=== PATIENT | female | born 1955 | race Caucasian/White ===

== ENCOUNTER 2019-12-31 22:06 | Observation (INO) | payer OTHER ==
--- OUTSIDE RECORDS SUMMARY | 2019-12-31 22:09 | XMS REPORT | Clinical Summary ---
:1955 Author Organization [facility] Address [address] [place] [address] Care Team Providers Name Role Phone Jayro Vale MD Primary Care Provider Allergies No Known Allergies Medications Medication Sig Dispensed Refills Start Date End Date Status ALPRAZolam (XANAX) 0.25 Take 0.25 mg by 2 02/08/2019 Active MG tablet mouth 3 (three) times a day. bisoprolol (ZEBETA) 10 Take 10 mg by 02/11/2019 Active MG tablet mouth daily. buPROPion XL Take 300 mg by 0 12/22/2018 A ctive (WELLBUTRIN XL) 300 MG mouth daily. 24 hr tablet cholecalciferol, TAKE ONE CAPSULE 1 02/09/2019 Active vitamin D3, 50,000 unit ONCE A WEEK FOR A capsule MONTH AND THEN ONCE A MONTH desvenlafaxine Take 100 mg by 0 12/23/2018 Active (PRISTIQ) 100 MG 24 hr mouth daily. tablet levothyroxine TAKE 1 TABLET BY 0 02/09/2019 Active (SYNTHROID, LEVOXYL) 50 MOUTH ONCE EVERY mcg tablet MORNING ON AN EMPTY STOMACH spironolactone Take 50 mg by 1 02/09/2019 Active (ALDACTONE) 50 MG mouth daily. tablet traMADol (ULTRAM) 50 mg TAKE 1 TABLET BY 2 9 Active tablet MOUTH EVERY DAY NEEDED FOR JOINT PAIN zolpidem (AMBIEN) 10 mg TAKE 1 TABLET BY 0 9 Active tablet MOUTH EVERYDAY AT BEDTIME Active Problems Problem Noted Date Varicose veins of leg with edema, bilateral 03/30/2019 Resolved Problems Problem Noted Date Resolved Date Varicose veins of bilateral lower extremities with pain 03/0505/06/2019 Encounters Date Type Specialty Care Team Description 05/05/2019 Office Visit Cardiovascular Kenneth Sawant, Varicose veins of leg MD with edema, aubree ateral (Primary Dx) 04/07/2019 Office Visit Cardiovascular Kenneth Sawant, Varicose veins of bilateral lower extremities with pain (Primary Dx); Varicose veins of leg with edema, bilateral 03/31/2019 Procedure visit Cardiovascular Kenneth Sawant, Varic ose veins of leg with edema, bilateral (Primary Dx); Varicose veins of bilateral lower extremities with pain 03/30/2019 Procedure visit Cardiovascular Kenneth Sawant, Varic ose veins of bilateral lower extremities with pain (Primary Dx); Varicose veins of leg with edema, bilateral 03/30/2019 Refill Cardiovascular Belinda Mcgowan, BIT SANDER 03/30/2019 Refill Cardiovascular Belinda Mcgowan, BIT SANDER 03/10/2019 Office Visit Cardiovascular Kenneth Sawant, Varicose veins of both legs with edema (Primary Dx); Varicose veins of bilateral lower extremities with pain; Varicose veins of leg with edema, bilateral after 12/30/2018 Family History Medical History Relation Name Comments Hypertension Father Dementia Mother Hypertension Mother Varicose Veins Paternal Grandmother Relation Name Status Comments Father Mother Paternal Grandmother Social History Tobacco Use Types Packs/Day Years Used Date Never Smoker Smokeless Tobacco: Never Used Alcohol Use Drinks/Week oz/Week Comments Never Alcohol Habits Answer Date Recorded How often do you have a drink containing alcohol? Never 03/10/2019 How many drinks containing alcohol do you have on a typical Not asked day when you are drinking? How often do you have six or more drinks on one occasion? No t asked Sex Assigned at Date Recorded Not on file Job Start Date Occupation Industry Not on file Not on file Not on file Travel History Travel Start Travel End No recent travel history available. Last Filed Vital Signs Vital Sign Reading Time Taken Comments Blood Pressure 143/82 05/05/2019 1:29 PM CDT Pulse 57 05/05/2019 1:29 PM CDT Temperature - - Respiratory Rate 14 03/31/2019 1:45 PM CDT Oxygen Saturation 100% 05/05/2019 1:29 PM CDT Inhaled Oxygen Concentration - - Weight 116 kg (256 lb) 03/31/2019 1:45 PM CDT Height 170.2 cm (5' 7") 03/31/2019 1:45 PM CDT Body Mass Index 40.1 03/31/2019 1:45 PM CDT Plan of Treatment Date Type Specialty Care Team Description 01/04/2020 [place] [address] [facility] [address] [place], [place] [address] [phone] Health Maintenance Due Date Last Done Comments CERVICAL CANCER SCREENING 1977 BREAST CANCER SCREENING 2006 COLONOSCOPY SCREENING 2006 SHINGLES VACCINES (#1) 2006 INFLUENZA VACCINE 03/04/2020 Procedures Procedure Name Priority Date/Time Associated Diagnosis Comme nts FL ENDOVENOUS LASER, Routine 03/31/2019 1:30 Varicose veins o f Results for this 1ST VEIN PM CDT leg with edema, procedure ar e in bilateral the results Varicose veins of section. bilateral lower extremities with pain FL ENDOVENOUS LASER, Routine 03/30/2019 1:30 Varicose veins o f Results for this 1ST VEIN PM CDT bilateral lower procedure ar e in extremities with the results pain section. Varicose veins of leg with edema, bilateral after 12/30/2018 Results Venous Treatments (03/31/2019 1:30 PM CDT) Narrative Performed At Kenneth Sawant MD 03/31/2019 2 :53 PM Venous Treatments Date/Time: 03/31/2019 2:51 PM Performed by: Kenneth Sawant MD Authorized by: Kenneth Sawant MD Procedure Comments: Surgeon: Kenneth Sawant M.D. 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 with jen icose veins and edema Postoperative Diagnosis: Same as Preoper ative Diagnosis Procedure: EndovenousLaser Treatment (EVLT) CPT 31747, 98318 of the right proximal greater saphenous vein Equipment: VenaCure 1470 diode laser Specifications: Length of the vein 30 cm , 307 seconds, 1840 Joules Anesthesia: Local Tumescent (400 cc of R jessica s Lactate, 1% Lidocaine with epinephrine 50 ml, Solumedrol 40 mg) Total amount used of the mixture: 150 ml Blood Loss: Less than 5 cc Specimens: None Complications: None Procedure in Detail: A thorough and appropriate discussion re garding the indications, risks, and benefits of this procedure was done with the patie nt. They were given ample opportunity to ask any questions w lowellh were answered to their satisfaction. After informed consent w as obtained, the following procedure was performed in our clinic. The patient was placed in a supine position in the pro cedure room. The The right proximal grater saphenous was mapped using t he Duplex ultrasound and marked the site of entrance on the p atient s leg. The leg was then prepped and draped in a sterile fashion. 1% plain li docaine was used to infiltrate the skin and under ultrasound guidance the right mid-distal grater saphenous vein was accessed percutaneously wi th a one step 4 Fr sheath. A wire was placed into the she ath and followed to the saphenofemoral junction (SFJ) with ultrasound assistan ce. The dilator and wire were removed and 600 m laser fiber was introduc ed in to the catheter and then withdrawn 2.5 cm from the Junct ion. Then, tumescent anesthetic was injected around the saphenous vein u nder ultrasound guidance. The laser was fired up and withdrawn slowly delivering hiral roximately 60 Joules per cm from its location and throughout the treated segment. The treated length was 30cm. Once the procedure wa s completed, the hardware was removed and a repeat Duplex scan was performed to as certain closure of the vein and no injury the common femora l vein was done. Then steri strips were applied and the leg was then wrapped with ABD pads along the saphenous vein, and thigh-high compressi on stocking was applied. The patient tolerated the procedure well and remained in the procedure room for 15-20 minutes. After that the p ostoperative instructions were given verbally and in writing as well. Sherif arrieta advised over the counter Ibuprofen 400 mg PO every 4-6 hrs for pa in control. The patient was discharged home. The patient understood and agreed. Consent: Consent obtained: Verbal and writte n Consent given by: Patient Risks discussed: Bleeding, incomplete drainage, i nfection, pain, nerve damage, poor cosmetic result and deep ve nous thrombosis formation Alternatives discussed: No treatment, delayed shara atment, alternative treatment, observation and referral [place] protocol: Procedure explained and questions ans wered to patient or proxy's satisfaction: yes Site/side marked: yes Immediately prior to procedure a time out was called: yes Patient identity confirmed: Verball y with patient Post-procedure details: Patient tolerance of procedure: Court erated well, no immediate complications Venous Treatments (03/30/2019 1:30 PM CDT) Narrative Performed At Kenneth Sawant MD 03/30/2019 3 :17 PM Venous Treatments Date/Time: 03/30/2019 3:15 PM Performed by: Kenneth Sawant MD Authorized by: Kenneth Sawant MD Procedure Comments: Surgeon: Kenneth Sawant M.D. As sistants: SAVANNAH Sanders MA Amanda Mercado Preoperative Diagnosis: Symptomatic veno us insufficiency of the left proximal greater saphenous vein with jen icose veins and edema Postoperative Diagnosis: Same as Preoper ative Diagnosis Procedure: EndovenousLaser Treatment (EV LT) CPT 77029,74312 of the left proximal greater saphenous vein Equipment: VenaCure 1470 diode laser Specifications: Length of the vein 40 cm , 388 seconds, 2329 Joules Anesthesia: Local Tumescent (400 cc of R jessica s Lactate, 1% Lidocaine with epinephrine 50 ml, Solumedrol 40 mg) Total amount used of the mixture: 150 ml Blood Loss: Less than 5 cc Specimens: None Complications: None Procedure in Detail: A thorough and appropriate discussion re garding the indications, risks, and benefits of this procedure was done with the patie nt. They were given ample opportunity to ask any questions w hich were answered to their satisfaction. After informed consent w as obtained, the following procedure was performed in our clinic. The patient was placed in a supine position in the pro cedure room. The The left proximal grater saphenous was mapped using th e Duplex ultrasound and marked the site of entrance on the p atient s leg. The leg was then prepped and draped in a sterile fashion. 1% plain li docaine was used to infiltrate the skin and under ultrasound guidance the left mid-distal grater saphenous vein was accessed percutaneously wi th a one step 4 Fr sheath. A wire was placed into the she ath and followed to the saphenofemoral junction (SFJ) with ultrasound assistan ce. The dilator and wire were removed and 600 m laser fiber was introduc ed in to the catheter and then withdrawn 2.5 cm from the Junct ion. Then, tumescent anesthetic was injected around the saphenous vein u nder ultrasound guidance. The laser was fired up and withdrawn slowly delivering hiral roximately 60 Joules per cm from its location and throughout the treated segment. The treated length was 40 cm. Once the procedure w as completed, the hardware was removed and a repeat Duplex scan was performed to as certain closure of the vein and no injury the common femora l vein was done. The puncture sites were covered with steri-strips. The leg was th en wrapped with ABD pads along the saphenous vein, and thigh -high compression stocking was applied. The patient tolerated the procedure well and remained in the procedure room for 15-20 minutes. After that the p ostoperative instructions were given verbally and in writing as well. W berny advised over the counter Ibuprofen 400 mg PO every 4-6 hrs for pa in control. The patient was discharged home. The patient understood and agreed. Consent: Consent obtained: Verbal and writte n Consent given by: Patient Risks discussed: Bleeding, incomplete drainage, i nfection, pain, nerve damage, poor cosmetic result and deep ve nous thrombosis formation Alternatives discussed: No treatment, delayed shara atment, alternative treatment, observation and referral [place] protocol: Procedure explained and questions ans wered to patient or proxy's satisfaction: yes Site/side marked: yes Immediately prior to procedure a time out was called: yes Patient identity confirmed: Verball y with patient Post-procedure details: Patient tolerance of procedure: Court erated well, no immediate complications after 12/30/2018 Advance Directives For more information, please contact: [phone] Type Date Recorded Patient Law Researcher Explanati on Advance Directives, Living Will and Medical Power of Drug Coordinator
[2019-12-31 22:41] LABS: Basophils % 0.9 % (0-1.3); Hematocrit 25.2 % (36.0-45.0); Lymphocytes % 27.1 % (15.3-44.8); MPV 8.1 fL (7.6-11.3); RBC Red Blood Cell Count 3.08 M/uL (3.86-4.86)
[2019-12-31 22:45] LABS: Protime INR 1.2
[2019-12-31 23:06] LABS: ALT/SGPT 17 U/L (12-78); AST/SGOT 29 U/L (15-37); Albumin 2.6 g/dL (3.4-5.0); Alkaline Phosphatase 92 U/L (45-117); BUN Blood Urea Nitrogen 33 mg/dL (7-18); Bicarbonate 25 mmol/L (21-32); Bilirubin Direct 0.2 mg/dL (0-0.2); Bilirubin Total 0.9 mg/dL (0.2-1.0); CKMB Creatine Kinase MB 2.8 ng/mL (0.3-3.6); Creatine Phosphokinase 203 U/L (26-192); Glucose Level 112 mg/dL (74-106); Lipase 63 U/L (73-393); Magnesium 1.8 mg/dL (1.8-2.4); Potassium 4.3 mmol/L (3.5-5.1); Sodium Level 140 mmol/L (136-145); Troponin (Emerg Dept Use Only) < 0.02 ng/mL (0.0-0.045)
[2019-12-31] MEDS ORDERED: NA CHLORIDE 0.9% 1,000 ML ONE (23:23)
[2020-01-01] MEDS ORDERED: ACETAMINOPHEN 500 MG TAB PO PRN (00:34)
[2020-01-01 00:42] LABS: Urine Blood NEGATIVE (NEG); Urine Glucose NEGATIVE (NEG); Urine Protein NEGATIVE (NEG); Urine pH 7.5 (5.0-7.0)
[2020-01-01 00:56] LABS: Barbiturates NEGATIVE (NEGATIVE); Benzodiazepines NEGATIVE (NEGATIVE); Cocaine NEGATIVE (NEGATIVE); METHAMPHETAM NEGATIVE (NEGATIVE); Methadone NEGATIVE (NEGATIVE); Opiates NEGATIVE (NEGATIVE); Phencyclidine NEGATIVE (NEGATIVE); THC Cannibis NEGATIVE (NEGATIVE)
[2020-01-01] MEDS ORDERED: ONDANSETRON 4 MG/2 ML VIAL ONE (01:25)
[2020-01-01 02:54] VITALS: BMI 38.2
[2020-01-01] MEDS: PANTOPRAZOLE INJ 80 MG in NA CHLORIDE 0.9% 250 ML IV SCH ×2 (05:56→15:47)
[2020-01-01] MEDS ORDERED: PANTOPRAZOLE 40 MG INJ ONE (05:57)
[2020-01-01] MEDS ORDERED: NA CHLORIDE 0.9% 250 ML ONE ×3 (05:57→10:46)
[2020-01-01 06:09] LABS: Absolute Lymphocytes (CBC) 1.1 K/uL (0.7-4.9); Basophils % 0.6 % (0-1.3); Lymphocytes % 19.6 % (15.3-44.8); MPV 8.1 fL (7.6-11.3); RBC Red Blood Cell Count 2.56 M/uL (3.86-4.86)
[2020-01-01] MEDS ORDERED: ALPRAZOLAM 0.25 MG TABLET PO SCH (09:00)
[2020-01-01] MEDS ORDERED: BUPROPION HCL XL 150 MG TAB PO SCH (09:00)
[2020-01-01] MEDS ORDERED: BISOPROLOL 5 MG TABLET PO SCH (09:00)
[2020-01-01] MEDS ORDERED: LEVOTHYROXINE SOD 0.05 MG TABLET PO SCH (09:00)
[2020-01-01] MEDS ORDERED: DESVENLAFAXINE SUCCINATE 100 MG PO SCH (09:00)
--- NOTE | 2020-01-01 11:22 | P.SSS ---
Patient History Date of Service: 01/01/20 Reason for admission: WEAK, PASSED OUT. History of Present Illness: MS. KUMAR IS A PATIENT WITH CHRONIC DEPRESSION WHO GOES TO A PSYCHIATRIST. SHE DOES NOT COME TO MY OFFICE MUCH. SHE DID SOME YARD WORK AND HAS HAD SHOULDER PAIN. SHE HAS BEEN TAKING ADVIL DAILY FOR IT. SHE COMES IN WITH WEAKNESS AND MELENA. HER HG WAS 8 GM AND DROPPED TO 6.8 IN A FEW HOURS. NURSED CALLED ME A FEW TIMES AT NIGHT TO TAKE CARE OF THIS. I ORDERED TWO UNITS OF PACKED RBCS. HER BP IS ABOUT 95 SYSTOLIC. WE DON'T HAVE A GI DOCTOR [facility]. I HAVE CALLED A FEW GI DOCTORS TO SEE IF ANYONE WANTS TO TRANSFER HER TO [facility] OR [place]. MEANWHILE I WILL CONTINUE SUPPORTIVE CARE. Allergies codeine [Codeine] Adverse Reaction (Intermediate, Verified 06/23/12 04:22) Nausea/Vomiting Home Medications: ALPRAZolam [Xanax*] 0.25 mg PO QID PRN 01/01/20 Bupropion *Xl* [Wellbutrin XL*] 300 mg PO DAILY 01/01/20 Desvenlafaxine Succinate [Desvenlafaxine Succinate ER] 100 mg PO DAILY 01/01/20 Levothyroxine [Synthroid*] 50 mcg PO DAILY 01/01/20 Zolpidem Tartrate [Ambien*] 10 mg PO BEDTIME 01/01/20 bisoproloL fumarate [Zebeta*] 10 mg PO DAILY 01/01/20 - Past Medical/Surgical History Has patient received pneumonia vaccine in the past: No Diabetic: No -: HTN -: hypothyroidism -: anxiety -: depression -: DVT bilateral legs -: stomach stapling -: hysterectomy -: veins in legs repaired -: polyps removed from colon -: Bilateral feet surgery - Family History Father -: Hypertension, Lung disease Mother -: Heart disease, Hypertension, Stroke, Seizures - Social History Smoking Status: Former smoker Alcohol use: No CD- Drugs: No Caffeine use: Yes Place of Residence: Home Review of Systems General: Weakness, Malaise Respiratory: Unremarkable Gastrointestinal: No Distention, Melena, As per HPI Physical Examination - Vital Signs Temperature: 98.3 F Blood Pressure: 122/54 Pulse: 105 Respirations: 18 Pulse Ox (%): 96 - Physical Exam General: Mild distress, Moderate distress, Obese HEENT: Atraumatic, PERRLA, Mucous membr. moist/pink, EOMI, Sclerae nonicteric Neck: Supple, 2+ carotid pulse no bruit, No LAD, Without JVD or thyroid abnormality Respiratory: Clear to auscultation bilaterally, Normal air movement Cardiovascular: Regular rate/rhythm, Normal S1 S2 Gastrointestinal: Normal bowel sounds, No tenderness Musculoskeletal: No tenderness Integumentary: No rashes Neurological: Normal gait, Normal speech, Normal strength at 5/5 x4 extr, Normal tone, Normal affect Lymphatics: No axilla or inguinal lymphadenopathy - Studies Laboratory Data (last 24 hrs) 12/31/19 22:14: PT 14.1 H, INR 1.20, APTT 28.5 12/31/19 22:14: WBC 3.9 L, Hgb 8.0 L, Hct 25.2 L, Plt Count 135 L 12/31/19 22:14: Sodium 140, Potassium 4.3, BUN 33 H, Creatinine 1.49 H, Glucose 112 H, Magnesium 1.8, Total Bilirubin 0.9, AST 29, ALT 17, Alkaline Phosphatase 92, Lipase 63 L - Diagnosis (Problem(s)) (1) GI bleed Current Visit: Yes Status: Acute Plan: IV PROTONIX. PACKED RBCS ABOVE. FU HG DAILY. CONSULT GI BUT WE HAVE NONE AT [facility]. WILL TRANSFER TO HIGHER LEVEL OF CARE WHEN WE HAVE AN ACCEPTING DOCTOR. Qualifiers: GI bleed type/associated pathology: gastritis (2) Anemia Current Visit: Yes Status: Acute Qualifiers: Anemia type: iron deficiency (3) Orthostatic hypotension Current Visit: Yes Status: Acute Plan: FROM ACUTE BLOOD LOSS. SHOULD STABILIZE. SHE NOW KNOWS AND HAS BEEN TOLD BEFORE ALSO NOT TO TAKE ANY NSAIDS EVER. SHE KNOWS TO CALL FOR HELP AT OFFICE BEFORE TAKING ANY MEDS. - Disposition Disposition: ROUTINE DISCHARGE
--- NOTE | 2020-01-01 12:02 | RAD REPORT ---
EXAM DESCRIPTION: RAD - Pelvis - 12/31/2019 10:54 pm CLINICAL HISTORY: TRAUMA COMPARISON: No comparisons FINDINGS: Mild arthritic changes involve both hips. No fracture, dislocation or AVN pattern.
--- NOTE | 2020-01-01 12:03 | RAD REPORT ---
EXAM DESCRIPTION: RAD - Hip Right 2 View - 12/31/2019 10:54 pm CLINICAL HISTORY: fall COMPARISON: No comparisons FINDINGS: Mild osteoarthritic changes affect the right hip. No fracture, dislocation or AVN pattern.
--- NOTE | 2020-01-01 12:04 | RAD REPORT ---
EXAM DESCRIPTION: RAD - Knee Left 3 View - 12/31/2019 10:54 pm CLINICAL HISTORY: fall COMPARISON: No comparisons FINDINGS: Moderate arthritic changes involve the medial joint compartment. No fracture, dislocation or aggressive marrow pattern. Small suprapatellar joint effusion.
--- NOTE | 2020-01-01 12:05 | RAD REPORT ---
EXAM DESCRIPTION: RAD - Chest Single View - 12/31/2019 10:54 pm CLINICAL HISTORY: syncope Chest pain. COMPARISON: CHEST SINGLE VIEW dated 09/16/2008 FINDINGS: Portable technique limits examination quality. The lungs are grossly clear. The heart is normal in size. No displaced fractures. IMPRESSION: No acute intrathoracic process suspected.
--- NOTE | 2020-01-01 12:05 | RAD REPORT ---
EXAM DESCRIPTION: RAD - Knee Right 3 View - 12/31/2019 10:54 pm CLINICAL HISTORY: fall COMPARISON: No comparisons FINDINGS: Moderate osteoarthritic changes involving medial compartment. No fracture, dislocation see n. Small suprapatellar joint effusion.
[2020-01-01 15:22] VITALS: BP 123/52; TEMP 98.1
--- NOTE | 2020-01-01 15:47 | RAD REPORT ---
EXAM DESCRIPTION: CT Head C Spine Mpr Wo Con CLINICAL HISTORY: 64 years Female syncope/fall TECHNIQUE: Contiguous axial CT images obtained through the brain and cervical spine without IV contr ast. Coronal and sagittal reformatted images also provided. This CT exam was performed according to our departmental dose-optimization program, which includes on e or more of the following dose reduction techniques: automated exposure control, adjustment of the m A and/or kV according to patient size, and/or use of iterative reconstruction technique. COMPARISON: No prior exams provided for comparison. FINDINGS: There is no acute skull fracture, intracranial hemorrhage, extraaxial collection, or acute transcortical infarction. The ventricles are normal in size and contour without mass effect or midli ne shift. The visualized paranasal sinuses, tympanomastoid cavities, and orbits are normal. There is no acute cervical fracture or spondylolisthesis. Vertebral body and disc space heights are preserved without aggressive osseous lesion. There is no de finite central canal or neural foraminal stenosis at any cervical level. No prevertebral or paraspinal soft tissue swelling. Mild atelectasis in the lung apices. IMPRESSION: No acute intracranial or cervical spine injury. Electronically signed by: Natalie Schaefer MD 12/31/2019 11:23 PM CDT Due to temporary technical issues with the PACS/Fluency reporting system, reports are being signed by the in house radiologist without review asa courtesy to ensure prompt reporting. The interpreting ra diologist is fully responsible for the content of the report.
[2020-01-01 16:11] LABS: Hematocrit 26.7 % (36.0-45.0)
[2020-01-01 20:01] LABS: Absolute Lymphocytes (CBC) 2.5 K/uL (0.7-4.9); Basophils % 0.8 % (0-1.3); Hematocrit 28.7 % (36.0-45.0); Lymphocytes % 28.4 % (15.3-44.8); MPV 8.2 fL (7.6-11.3); RBC Red Blood Cell Count 3.42 M/uL (3.86-4.86)
[2020-01-01 20:30] VITALS: O2SAT 92
[2020-01-01 20:45] LABS: Anisocytosis SLIGHT; Blood Morphology Comment NOTED (NOT SEEN); Hypochromasia 1+; Platelet Estimate ADEQ; Polychromasia SLIGHT
[2020-01-01] MEDS ORDERED: ZOLPIDEM TARTRATE 10 MG TABLET PO SCH (21:00)
--- NOTE | 2020-01-03 17:30 | EDPHYS ---
Physician Documentation [facility] Name: Chanel Koenig Age: 64 yrs Sex: Female : 1955 Arrival Date: 12/31/2019 Time: 22:08 Bed 8 Private MD: ED Physician Carlos Smith HPI: 12/30 22:31 This 64 yrs old Female presents to ER via EMS with complaints of Dizziness, mh7 fall. 22:31 The patient presents with dizziness, lightheadedness. Onset: The symptoms/episode mh7 began/occurred just prior to arrival, today. Context: occurred at home, occurred while the patient was standing, just prior to the episode the patient experienced lightheadedness. Modifying factors: The symptoms are alleviated by nothing, the symptoms are aggravated by standing up. Associated signs and symptoms: Pertinent negatives: abdominal pain, agitation, ataxia, blurred vision, chest pain, combativeness, confusion, diaphoresis, focal weakness, headache, nausea, numbness, palpitations, , seizure, shortness of breath, tingling, vomiting. Severity of symptoms: At their worst the symptoms were moderate just prior to arrival, in the emergency department the symptoms have improved moderately. Patient states that she stood up and felt dizzy with lightheaded and fell to the floor. She is not sure if she passed out but next remembers when her daughter came to get her up. She states that she had an episode of nausea and vomiting earlier in the day after eating an orange. She denies any neck pain, headache, chest pain, abdominal pain, SOB, fever, cough.. Historical: - Allergies: 22:17 Codeine; sg - Home Meds: 22:17 bisoprolol fumarate 10 mg oral tab 1 tab once daily [Active]; desvenlafaxine oral oral sg once daily [Active]; bupropion HCl 300 mg Oral Tb24 1 tab once daily [Active]; levothyroxine 50 mcg tab 1 tab once daily [Active]; Xanax Oral twice daily [Active]; Ambien Oral once daily [Active]; - PMHx: 22:17 Hypothyroidism; sg - Immunization history:: Adult Immunizations up to date. - Social history:: Smoking status: Patient denies any tobacco usage or history of. ROS: 22:31 Constitutional: Negative for fever, chills, and weight loss, Eyes: Negative for injury, mh7 pain, redness, and discharge, ENT: Negative for injury, pain, and discharge, Neck: Negative for injury, pain, and swelling, Cardiovascular: Negative for chest pain, palpitations, and edema, Respiratory: Negative for shortness of breath, cough, wheezing, and pleuritic chest pain, Abdomen/GI: Negative for abdominal pain, nausea, vomiting, diarrhea, and constipation, Back: Negative for injury and pain, : Negative for injury, bleeding, discharge, and swelling, Skin: Negative for injury, rash, and discoloration. 22:31 Neuro: Negative for headache, weakness, numbness, tingling, and seizure, Psych: Negative for depression, anxiety, suicide ideation, homicidal ideation, and hallucinations, Allergy/Immunology: Negative for hives, rash, and allergies, Endocrine: Negative for neck swelling, polydipsia, polyuria, polyphagia, and marked weight changes, Hematologic/Lymphatic: Negative for swollen nodes, abnormal bleeding, and unusual bruising. 22:31 MS/extremity: Positive for contusion, pain, tenderness, of the right and left knee, right hip, Negative for decreased range of motion, deformity, ecchymosis, erythema, laceration, paresthesias, puncture, rash, swelling, tingling, warmth. Exam: 22:31 Constitutional: This is a well developed, well nourished patient who is awake, alert, mh7 and in no acute distress. Head/Face: Normocephalic, atraumatic. Eyes: Pupils equal round and reactive to light, extra-ocular motions intact. Lids and lashes normal. Conjunctiva and sclera are non-icteric and not injected. Cornea within normal limits. Periorbital areas with no swelling, redness, or edema. ENT: Nares patent. No nasal discharge, no septal abnormalities noted. Tympanic membranes are normal and external auditory canals are clear. Oropharynx with no redness, swelling, or masses, exudates, or evidence of obstruction, uvula midline. Mucous membranes moist. Neck: Trachea midline, no thyromegaly or masses palpated, and no cervical lymphadenopathy. Supple, full range of motion without nuchal rigidity, or vertebral point tenderness. No Meningismus. Chest/axilla: Normal chest wall appearance and motion. Nontender with no deformity. No lesions are appreciated. Cardiovascular: Regular rate and rhythm with a normal S1 and S2. No gallops, murmurs, or rubs. Normal PMI, no JVD. No pulse deficits. Respiratory: Lungs have equal breath sounds bilaterally, clear to auscultation and percussion. No rales, rhonchi or wheezes noted. No increased work of breathing, no retractions or nasal flaring. Abdomen/GI: Soft, non-tender, with normal bowel sounds. No distension or tympany. No guarding or rebound. No evidence of tenderness throughout. Back: No spinal tenderness. No costovertebral tenderness. Full range of motion. Skin: Warm, dry with normal turgor. Normal color with no rashes, no lesions, and no evidence of cellulitis. 22:31 Neuro: Awake and alert, GCS 15, oriented to person, place, time, and situation. Cranial nerves II-XII grossly intact. Motor strength 5/5 in all extremities. Sensory grossly intact. Cerebellar exam normal. Normal gait. Psych: Awake, alert, with orientation to person, place and time. Behavior, mood, and affect are within normal limits. 22:31 Musculoskeletal/extremity: Extremities: noted in the left anterior knee: contusion, pain, tenderness, noted in the right anterior knee: contusion, pain, tenderness, ROM: intact in all extremities, Circulation is intact in all extremities. Pulses: are normal with no appreciated deficits, Perfusion: the patient is normally perfused throughout, Perfusion: the extremity is normally perfused throughout, Calf tenderness, is absent, Edema, is not appreciated, Sensation intact. Compartment Syndrome exam of affected extremity: is normal. no numbness, no tingling, no sensation deficit, no palor, no weak pulses, Joints: the left knee displays tenderness, the right knee displays tenderness, Weight bearing: is unable to bear weight, Tendon exam: specific tendon testing normal through active and passive range of motion Calves: are non-tender. 22:43 ECG was reviewed by the Attending Physician. [facility] Vital Signs: 22:17 BP 141 / 75; Pulse 101; Resp 20; Temp 97.7; Pulse Ox 100% on R/A; Weight 83.91 kg (R); sg Height 5 ft. 7 in. (170.18 cm) (R); Pain 3/10; 23:30 BP 111 / 57; Pulse 95; Resp 20; Pulse Ox 100% on R/A; lp1 23:52 BP 133 / 66 RA Supine (auto/lg); Pulse 94 MON; Resp 20 S; Pulse Ox 100% on R/A; ds4 23:55 BP 132 / 79 RA Supine (auto/lg); Pulse 104 MON; Resp 19 S; Pulse Ox 100% on R/A; ds4 23:58 BP 121 / 100 RA Standing (auto/lg); Pulse 116 MON; Resp 18 S; Pulse Ox 100% on R/A; ds4 12/31 00:30 BP 117 / 71; Pulse 100; Resp 16; Pulse Ox 100% on R/A; lp1 01:59 BP 125 / 57; Pulse 97; Resp 20; Pulse Ox 99% on R/A; lp1 12/30 22:17 Body Mass Index 28.97 (83.91 kg, 170.18 cm) sg NIH Stroke Scale Scores: 12/30 22:22 NIHSS Score: 0 sg MDM: 22:22 Patient medically screened. [facility] 12/31 00:07 Differential diagnosis: cardiac arrhythmia, CVA, generalized weakness, hypovolemia, [facility] idiopathic dizziness, near-syncope, syncope, TIA, vertigo. Data reviewed: vital signs, nurses notes, EMS record, lab test result(s), cardiac enzymes, CBC, electrolytes, urinalysis, EKG, radiologic studies, CT scan, plain films. Data interpreted: city tax auditor: rate is 100 beats/min, rhythm is normal sinus rhythm, regular, Interpretation: normal rate, normal rhythm, Pulse oximetry: on room air is 100 %. Interpretation: normal. Counseling: I had a detailed discussion with the patient and/or guardian regarding: the historical points, exam findings, and any diagnostic results supporting the discharge/admit diagnosis, the presence of at least one elevated blood pressure reading (>120/80) during this emergency department visit, lab results, radiology results, the need for further work-up and treatment in the hospital. 12/30 22:25 Order name: Glucose, Ancillary Testing; Complete Time: 22:47 EDDC 12/30 22:26 Order name: Basic Metabolic Panel; Complete Time: 23:37 7 12/30 22:26 Order name: CBC with Diff; Complete Time: 22:47 [facility] 12/30 22:26 Order name: Ckmb; Complete Time: 23:37 [facility] 12/30 22:26 Order name: CPK; Complete Time: 23:37 [facility] 12/30 22:26 Order name: Hepatic Function; Complete Time: 23:37 [facility] 12/30 22:26 Order name: Lipase; Complete Time: 23:37 [facility] 12/30 22:26 Order name: Magnesium; Complete Time: 23:37 [facility] 12/30 22:26 Order name: Protime (+inr); Complete Time: 22:47 [facility] 12/30 22:26 Order name: Ptt, Activated; Complete Time: 22:47 [facility] 12/30 22:26 Order name: Troponin (emerg Dept Use Only); Complete Time: 23:37 [facility] 12/30 22:26 Order name: UDS [facility] 12/30 22:26 Order name: ETOH Level; Complete Time: 23:37 [facility] 12/31 00:37 Order name: Urine Dipstick--Ancillary (enter results) [facility] 12/30 22:26 Order name: EKG; Complete Time: 22:27 [facility] 12/30 22:26 Order name: Cardiac monitoring; Complete Time: 22:26 [facility] 12/30 22:26 Order name: CT Head C Spine [facility] 12/30 22:26 Order name: Chest Single View XRAY [facility] 12/30 22:26 Order name: Hip Right 2 View XRAY [facility] 12/30 22:26 Order name: Pelvis XRAY [facility] 12/30 22:26 Order name: Knee Right 3 View XRAY [facility] 12/30 22:26 Order name: Knee Left 3 View XRAY [facility] 12/31 00:41 Order name: Type And Screen [facility] 12/31 00:43 Order name: Urine Dipstick-Ancillary [facility] 12/31 00:44 Order name: EKG Electrocardiogram [facility] 12/31 00:44 Order name: Troponin I [facility] 12/31 00:44 Order name: Troponin I [facility] 12/31 00:45 Order name: EKG Electrocardiogram [facility] 12/30 22:26 Order name: EKG - Nurse/Tech; Complete Time: 22:26 [facility] 12/30 22:26 Order name: IV Saline Lock; Complete Time: 22:34 [facility] 12/30 22:26 Order name: Labs collected and sent; Complete Time: 22:34 [facility] 12/30 22:26 Order name: NPO; Complete Time: 22: [facility] 12/30 22:26 Order name: O2 Per Protocol; Complete Time: : [facility] 12/30 22:26 Order name: O2 Sat Monitoring; Complete Time: 22: [facility] 12/30 22:26 Order name: Urine Dipstick-Ancillary (obtain specimen); Complete Time: 00:35 [facility] 12/30 23:42 Order name: Orthostatics; Complete Time: 00:35 EC/29 22:43 Rate is 100 beats/min. Rhythm is regular. QRS Wellman is Normal. IA interval is normal. mh7 QRS interval is normal. QT interval is normal. No Q waves. T waves are Normal. No ST changes noted. Clinical impression: Normal ECG. Administered Medications: 23:20 Drug: NS 0.9% 1000 ml Route: IV; Rate: 1000 ml; Site: left antecubital; lp1 12/31 01:00 Follow up: IV Status: Completed infusion; IV Intake: 1000ml 1 01:55 Drug: Zofran (Ondansetron) 4 mg Route: IVP; Site: left antecubital; lp1 02:20 Follow up: Response: Marked relief of symptoms lp1 Disposition: 01/01/20 00:09 Hospitalization ordered by Jayro Vale for Observation. Preliminary diagnosis is Syncope and collapse. - Bed requested for Telemetry/MedSurg (observation). - Status is Observation. lp1 - Condition is Stable. - Problem is new. - Symptoms have improved. NIH Stroke Scale - NIH Stroke Score Date: 12/31/2019 Time: 22:22 Total Score = 0 1a. Level of Consciousness (LOC) - 0(Alert) 1b. Level of Consciousness (LOC) (Year \T\ Age) - 0(Both) 1c. LOC Commands (Open \T\ Closes Eyes/Brick Catcher) - 0(Both) 2. Best Gaze (Lateral Gaze Paresis) - 0(Normal) 3. Visual Field Loss - 0(No visual loss) 4. Facial Palsy - 0(Normal) 5a. Left Arm: Motor (10-second hold) - 0(No drift) 5b. Right Arm: Motor (10-second hold) - 0(No drift) 6a. Left Leg: Motor (5-second hold - always test supine) - 0(No drift) 6b. Right Leg: Motor (5-second hold - always test supine) - 0(No drift) 7. Limb Ataxia (finger/nose \T\ heel/richards - test with eyes open) - 0(Absent) 8. Sensory Loss (pinprick arms/legs/face) - 0(Normal) 9. Best Language: Aphasia (description/naming/reading) - 0(No aphasia) 10. Dysarthria (speech clarity - read or repeat words) - 0(Normal) 11. Extinction and Inattention (visual/tactile/auditory/spatial/personal) - 0(No abnormality) Initials: sg Signatures: Dispatcher [employer] EDMS Javy Chacon RN RN sg Hermelinda Giron RN KEIRA 1 Kailey Donovan RN RN cg Carlos Smith MD MD [facility] Corrections: (The following items were deleted from the chart) 12/30 22:37 22:30 This 64 yrs old Female presents to ER via EMS with complaints mh7 of Syncope. 7 12/31 00:52 00:09 Hospitalization Ordered by Jayro Vale MD for Observation. Preliminary cg diagnosis is Syncope and collapse. Bed requested for Telemetry/MedSurg (observation). Status is Observation. Condition is Stable. Problem is new. Symptoms have improved. 7 02:37 00:52 01/01/2020 00:09 Hospitalization Ordered by Jayro Vale MD for lp1 Observation. Preliminary diagnosis is Syncope and collapse. Bed requested for Telemetry/MedSurg (observation). Status is Observation. Condition is Stable. Problem is new. Symptoms have improved. cg
--- NOTE | 2020-01-03 17:30 | ER ---
Nurse's Notes [facility] Name: Chanel Koenig Age: 64 yrs Sex: Female : 1955 Arrival Date: 12/31/2019 Time: 22:08 Bed 8 Private MD: Diagnosis: Syncope and collapse Presentation: 12/30 22:17 Chief complaint: Patient states: Dizziness and Nausea today, reports at around 2100 she sg turned to walk back from the foyer to her bedroom when she became unbalanced and fell down. Coronavirus screen: Proceed with normal triage. Ebola Screen: Patient negative for fever greater than or equal to 101.5 degrees Fahrenheit, and additional compatible Ebola Virus Disease symptoms Patient denies exposure to infectious person. Patient denies travel to an Ebola-affected area in the 21 days before illness onset. No symptoms or risks identified at this time. No acute neurological deficit is noted. The patients blood glucose was checked before arriving to the hospital and was found to be normal. Initial Sepsis Screen: Does the patient meet any 2 criteria? HR > 90 bpm. Does the patient have a suspected source of infection? No. Patient's initial sepsis screen is negative. Risk Assessment: Do you want to hurt yourself or someone else? Patient reports no desire to harm self or others. Onset of symptoms was December 31, 2019. Care prior to arrival: Cervical collar in place. IV initiated. 20 GA, in the left antecubital area, Glucose check: 136. Mechanism of Injury: Fall from standing position. Transition of care: patient was not received from another setting of care. 22:17 Method Of Arrival: EMS: [facility] 22:17 Acuity: DIEGO 2 Triage Assessment: 22:19 The onset of the patients symptoms was less than three hours ago. General: Appears in sg no apparent distress. well groomed, well developed, well nourished, Behavior is calm, cooperative, appropriate for age. Pain: Complains of pain in back and neck. Neuro: Level of Consciousness is awake, alert, obeys commands, Oriented to person, place, time, situation, Ornamental Iron Worker are equal bilaterally Moves all extremities. Speech is normal, Facial symmetry appears normal, Reports dizziness, "slow speech". Cardiovascular: Heart tones S1 S2 present Patient's skin is warm and dry. Respiratory: Airway is patent Respiratory effort is even, unlabored, Respiratory pattern is regular, symmetrical. GI: Abdomen is round non-distended. : No signs and/or symptoms were reported regarding the genitourinary system. Derm: Skin is pale, Skin temperature is warm. Musculoskeletal: Circulation, motion, and sensation intact. Range of motion: intact in all extremities. Historical: - Allergies: 22:17 Codeine; sg - Home Meds: 22:17 bisoprolol fumarate 10 mg oral tab 1 tab once daily [Active]; desvenlafaxine oral oral sg once daily [Active]; bupropion HCl 300 mg Oral Tb24 1 tab once daily [Active]; levothyroxine 50 mcg tab 1 tab once daily [Active]; Xanax Oral twice daily [Active]; Ambien Oral once daily [Active]; - PMHx: 22:17 Hypothyroidism; sg - Immunization history:: Adult Immunizations up to date. - Social history:: Smoking status: Patient denies any tobacco usage or history of. Screenin:22 VAN Screening: Arm Drift: Patient shows no arm weakness. Patient is VAN negative. sg 22:35 Abuse screen: Denies threats or abuse. Denies injuries from another. Nutritional lp1 screening: No deficits noted. Tuberculosis screening: No symptoms or risk factors identified. Fall Risk Total Oneill Fall Scale indicates High Risk Score (45 or more points). Fall prevention measures have been instituted. Side Rails Up X 2 Frequent Obs/Assessments Occuring As available patient and family educated on Fall Prevention Program and Strategies. Assessment: 22:30 General: Appears in no apparent distress. Behavior is calm, cooperative. Pain: Denies lp1 pain. Neuro: Level of Consciousness is awake, alert, obeys commands, Oriented to person, place, situation, Ornamental Iron Worker are equal bilaterally Moves all extremities. Full function Speech is normal, Facial symmetry appears normal, Pupils are PERRLA, Intact. Cardiovascular: Patient's skin is warm and dry. Respiratory: Respiratory effort is even, unlabored. GI: Abdomen is obese. : No signs and/or symptoms were reported regarding the genitourinary system. EENT: No signs and/or symptoms were reported regarding the EENT system. Derm: Skin is intact, Skin is dry, Skin is normal, superficial abrasion to right knee, patient states from previous fall. Musculoskeletal: Circulation, motion, and sensation intact. Range of motion: intact in all extremities. 12/31 00:00 Reassessment: During orthostatics, patient became nauseated, dry heaving at this time. lp1 00:38 Reassessment: Dr. Gann at bedside. lp1 01:00 Reassessment: Assisted to bathroom via WC by preventative maintenance technician. lp1 01:55 Reassessment: Patient returned from bathroom at this time; Dr. Smith aware of blood lp1 tinged stool. 03:05 Reassessment: r&d lab technician has called, requesting a troponin be drawn, the lab informed pt sg has been upstairs for admission, stated understanding. Vital Signs: 12/30 22:17 BP 141 / 75; Pulse 101; Resp 20; Temp 97.7; Pulse Ox 100% on R/A; Weight 83.91 kg (R); sg Height 5 ft. 7 in. (170.18 cm) (R); Pain 3/10; 23:30 BP 111 / 57; Pulse 95; Resp 20; Pulse Ox 100% on R/A; lp1 23:52 BP 133 / 66 RA Supine (auto/lg); Pulse 94 MON; Resp 20 S; Pulse Ox 100% on R/A; ds4 23:55 BP 132 / 79 RA Supine (auto/lg); Pulse 104 MON; Resp 19 S; Pulse Ox 100% on R/A; ds4 23:58 BP 121 / 100 RA Standing (auto/lg); Pulse 116 MON; Resp 18 S; Pulse Ox 100% on R/A; ds4 12/31 00:30 BP 117 / 71; Pulse 100; Resp 16; Pulse Ox 100% on R/A; lp1 01:59 BP 125 / 57; Pulse 97; Resp 20; Pulse Ox 99% on R/A; lp1 12/30 22:17 Body Mass Index 28.97 (83.91 kg, 170.18 cm) sg NIH Stroke Scale Scores: 12/30 22:22 NIHSS Score: 0 ED Course: 22:08 Patient arrived in ED. ds1 22:08 Carlos Smith MD is Attending Physician. mh7 22:14 Arm band placed on. sg 22:19 Triage completed. sg 22:30 Hermelinda Giron, KEIRA is Primary Nurse. lp1 22:36 Patient has correct armband on for positive identification. Bed in low position. Call lp1 light in reach. cafeteria monitor on. Pulse ox on. NIBP on. 22:36 Maintain EMS IV. Dressing intact. Good blood return noted. Gauge \\T\\ site: 20g to L AC. lp1 22:54 Chest Single View XRAY In Process Unspecified. EDMS 22:54 Hip Right 2 View XRAY In Process Unspecified. EDMS 22:54 Pelvis XRAY In Process Unspecified. EDMS 22:54 Knee Right 3 View XRAY In Process Unspecified. EDMS 22:54 Knee Left 3 View XRAY In Process Unspecified. EDMS 23:14 CT Head C Spine In Process Unspecified. EDMS 12/31 00:09 Jayro Vale MD is Hospitalizing Provider. 7 00:35 UDS Sent. ds4 01:57 No provider procedures requiring assistance completed. Patient admitted, IV remains in lp1 place. 02:09 T\\T\\S collected, blood band applied to patient. Inserted saline lock: 22 gauge in right ds4 wrist, using aseptic technique. Blood collected. 02:24 Type And Screen Sent. ds4 02:24 Urine Dipstick--Ancillary (enter results) Sent. ds4 Administered Medications: 12/30 23:20 Drug: NS 0.9% 1000 ml Route: IV; Rate: 1000 ml; Site: left antecubital; lp1 12/31 01:00 Follow up: IV Status: Completed infusion; IV Intake: 1000ml lp1 01:55 Drug: Zofran (Ondansetron) 4 mg Route: IVP; Site: left antecubital; lp1 02:20 Follow up: Response: Marked relief of symptoms lp1 Intake: 01:00 IV: 1000ml; Total: 1000ml. lp1 Outcome: 00:09 Decision to Hospitalize by Provider. mh7 01:59 Condition: stable lp1 01:59 Instructed on the need for admit. 02:19 Admitted to Tele via wheelchair, room 430, with chart, Report called to KEIRA Lopez lp1 02:37 Patient left the ED. lp1 NIH Stroke Scale - NIH Stroke Score Date: 12/31/2019 Time: 22:22 Total Score = 0 1a. Level of Consciousness (LOC) - 0(Alert) 1b. Level of Consciousness (LOC) (Year \\T\\ Age) - 0(Both) 1c. LOC Commands (Open \\T\\ Closes Eyes/Fairing Man) - 0(Both) 2. Best Gaze (Lateral Gaze Paresis) - 0(Normal) 3. Visual Field Loss - 0(No visual loss) 4. Facial Palsy - 0(Normal) 5a. Left Arm: Motor (10-second hold) - 0(No drift) 5b. Right Arm: Motor (10-second hold) - 0(No drift) 6a. Left Leg: Motor (5-second hold - always test supine) - 0(No drift) 6b. Right Leg: Motor (5-second hold - always test supine) - 0(No drift) 7. Limb Ataxia (finger/nose \\T\\ heel/richards - test with eyes open) - 0(Absent) 8. Sensory Loss (pinprick arms/legs/face) - 0(Normal) 9. Best Language: Aphasia (description/naming/reading) - 0(No aphasia) 10. Dysarthria (speech clarity - read or repeat words) - 0(Normal) 11. Extinction and Inattention (visual/tactile/auditory/spatial/personal) - 0(No abnormality) Initials: sg Signatures: Dispatcher [employer] EDMS Javy Chacon RN RN sg Jaylin Gómez ds1 Hermelinda Giron RN RN lp1 Dirk Garcia ds4 Carlos Smith MD MD mh7 Corrections: (The following items were deleted from the chart) 12/30 22:39 22:22 The patient has not been NPO before screening. The patient is alert, able sg to follow commands. The patient does not exhibit slurred or garbled speech The patient is not exhibiting difficulty speaking. The patient does not exhibit difficulty understanding words. The patient is able to swallow own secretions with no drooling or need for suction. Patient tolerated one teaspoon of water. No drooling, immediate coughing, gurgling, or clearing of the throat was noted. The patient tolerated 90mL of water. No drooling, immediate coughing, gurgling, or clearing of the throat was noted. The patient passed the bedside swallow screening. Oral medications may be given as ordered. Contact Physician for further diet orders. sg
== END 2020-01-01 20:10 | disposition short-term general hospital (02) ==
LOC: ER 22:06 → ERHOLD 01-01 01:02 → 4TH 01-01 02:19
PROVIDERS: ADMIT Internal Medicine; ATTEND Internal Medicine
DX: K29.01 Acute gastritis with bleeding (principal); D50.9 Iron deficiency anemia, unspecified; I95.1 Orthostatic hypotension; F32.9 Major depressive disorder, single episode, unspecified; I10 Essential (primary) hypertension; E03.9 Hypothyroidism, unspecified; F41.8 Other specified anxiety disorders; Z86.718 Personal history of other venous thrombosis and embolism; Z87.891 Personal history of nicotine dependence
CPT/HCPCS: 96361; 36430; 93005; 85025 ×3; 80048; 36415; 80320; 86900; 83735; 86850; 82550; 85610; 86901; 82947; 80076; 80307 ×8; 85730; 85018; 85014; 81003; 84484 ×3; 82553; 83690; 70450; 72125; 71045; 72170; 73502; 73562 ×2; 96374; 99285; C9113; P9016 ×2; J7030 ×3; J2405; G0378 ×2

== ENCOUNTER 2020-10-05 11:37 | Inpatient (IN) | payer OTHER ==
--- OUTSIDE RECORDS SUMMARY | 2020-10-05 11:41 | XMS REPORT | Continuity of Care Document ---
:1955 Author Organization [facility] t Address [address] [place] [address] Care Team Providers Name Role Phone Kavin PRAJAPATI Primary Care Physician SHEY Attending Clinician Unavailable Shey PRAJAPATI Attending Clinician Jaime PRAJAPATI Attending Clinician Eduardo Hsu MD Attending Clinician Puneet Main MD Attending Clinician Manuel Villatoro MD Attending Clinician Cornelio Santa MD Attending Clinician Eduardo HSU Admitting Clinician Unavailable Payers Payer Name Policy Type Policy Number Effective Date Expiration Date S stephanie AETNA - MGD [id number] 2019 [facility] CAREAETNA O 00:00:00 - Medical POS Center [id number] /POS Problems Condition Condition Condition Status Onset Resolution Last Treating Co mments Source Name Details Category Date Date Treatment Clinician Date Melena Melena Disease Active [facility] 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 8-27 Method i leg with leg with 00:00: st edema, edema, 00 bilateral bilateral Allergies, Adverse Reactions, Alerts Allergy Allergy Status Severity Reaction(s) Onset Inactive Treating Comm ents Source Name Type Date Date Clinician Codeine Drug Active Other (See "hurts my [facility] Comments) 5 stomach" [facility] - nce 00[facility]00: Medical 00 Center Family History Family Member Diagnosis Comments Start Date Stop Date Source Natural father Hypertension [facility] Natural mother Dementia [facility] Natural mother Hypertension [facility] Paternal grandmother Varicose Veins [facility] Social History Social Habit Start Date Stop Date Quantity Comments Source Sex Assigned At [facility] Alcohol Std Drinks History [facility] Meth odist Alcohol Binge Tobacco use and 2019-03-31 2019-03-31 Never used [place] [facility]ist exposure 00:00:00 00:00:00 Alcohol intake 2019-03-31 2019-03-31 Lifetime [facility] 00:00:00 00:00:00 non-drinker (finding) History SDOH 2019-03-10 2019-03-10 1 [facility] Alcohol Frequency 00:00:00 00:00:00 Smoking Status Start Date Stop Date Source Never smoker [facility] Medications Ordered Filled Start Stop Current Ordering Indication Dosage Frequency Signature Comments Components Source Medication Medication Date Date Medication? Clinician (SIG) Name Name buPROPion Yes 150mg QD Take [address] (WELLBUTRIN 6-01 mg by [facility] - XL) 150 MG 22:54: mouth Medica l 24 hr 49 daily. Center tablet desvenlafax 0 Yes 100mg QD Take [address] ine 6-01 mg by [facility] - succinate 22:54: mouth Medical (PRISTIQ) 49 daily. Center 100 MG 24 hr tablet levothyroxi 2019-0 Yes 50ug Take [address] 6-01 mcg by [facility] - (SYNTHROID, 22:54: mouth Medic al LEVOTHROID) 49 Every Center 50 MCG morning on tablet an empty stomach. ALPRAZolam 2019-0 Yes anxiety .25mg Take 0.[address] (XANAX) 6-01 mg by [facility] - 0.25 MG 22:54: mouth 3 Medical tablet 49 (three) Center times daily as needed for Anxiety. zolpidem 0 Yes 10mg Take [address] (AMBIEN) 10 6-01 by mouth Luke s - mg tablet 22:54: every Medical 49 night as Center needed for Insomnia. pantoprazol Yes 40mg Q.5D Take [address] e 6- tablet (40 [facility] - (PROTONIX) 00:00: mg total) Me dical 40 MG 00 by mouth 2 Center tablet (two) times daily. bisoprolol Yes 10mg QD Take 10 mg [place] (ZEBETA) 10 711 by mouth Meth irma MG tablet 00:00: daily. st 00 cholecalcif Yes TAKE ONE [place], 02-09 CAPSULE [facility]i vitamin D3, 00:00: ONCE A st 50,000 unit 00 WEEK FOR A capsule MONTH AND THEN ONCE A MONTH levothyroxi Yes TAKE 1 [place] 02-09 TABLET BY [facility] (SYNTHROID, 00:00: MOUTH ONCE st LEVOXYL) 50 00 EVERY mcg tablet MORNING ON AN EMPTY STOMACH spironolact Yes 50mg QD Take 50 mg [place] one 02-09 by mouth Methodi (ALDACTONE) 00:00: daily. st 50 MG 00 tablet traMADol Yes TAKE 1 [place] (ULTRAM) 50 - TABLET BY Met hodi mg tablet 00:00: MOUTH st 00 EVERY DAY NEEDED FOR JOINT PAIN ALPRAZolam Yes .25mg Q.[id number] Take 0.25 [place] (XANAX) 02-08 [id number] mg by Metho di 0.25 MG 00:00: 3D mouth 3 st tablet 00 (three) times a day. desvenlafax Yes 100mg QD Take 100 [place] in[place] 5-22 mg by [facility] (PRISTIQ) 00:00: mouth st 100 MG 24 00 daily. hr tablet buPROPion Yes 300mg QD Take 300 [address] XL 5-21 mg by [facility]i (WELLBUTRIN 00:00: mouth st XL) 300 MG 00 daily. 24 hr tablet zolpidem Yes TAKE 1 [facility] (AMBIEN) 10 5-21 TABLET BY Met hodi mg tablet 00:00: MOUTH st 00 EVERYDAY AT BEDTIME Vital Signs Vital Name Observation Time Observation Value Comments Source Systolic blood 2020-01-03 15:15:00 129 mm[Hg] [facility] Diastolic blood 2020-01-03 15:15:00 75 mm[Hg] [facility] Heart rate 2020-01-03 15:15:00 80 /min [facility] Body temperature 2020-01-03 15:15:00 36.44 [facility] Respiratory rate 2020-01-03 15:15:00 18 /min [facility] Oxygen saturation in 2020-01-03 15:15:00 99 /min [facility] Arterial blood by Medical Ce nter Pulse oximetry Body height 2020-01-01 21:42:00 170.2 cm [facility] Body weight 2020-01-01 21:42:00 110.224 kg [facility] BMI 2020-01-01 21:42:00 38.06 kg/m2 [facility] Procedures Procedure Date / Time Performed Performing Clinician Sour e RHYTHM STRIP - SCAN 2020-01-05 13:01:04 Provider, Default [facility] TRANSFUSION SERVICE 2020-01-04 17:53:16 Provider, Default [facility] - REPORT - SCAN Scanning [facility] PREPARE LEUKO-REDUCED 2020-01-03 23:54:00 Lilian Sandoval [facility] RBC [facility] TRANSFUSION SERVICE 2020-01-03 17:52:06 Provider, [facility] REPORT - SCAN Scanning [facility] REPORT OF PROCEDURE - 2020-01-03 13:11:32 Jose David [facility] ENDOSCOPY [facility] TISSUE EXAM 2020-01-03 12:51:00 Jose David [facility] UPPER ENDOSCOPY,BIOPSY 2020-01-03 12:29:00 Jose David [facility] CBC (HEMOGRAM ONLY) 2020-01-03 04:49:00 [facility] BASIC METABOLIC PANEL 2020-01-03 04:49:00 Esvin Hsu [facility] (7) [facility] HEPATIC FUNCTION PANEL 2020-01-03 04:49:00 Esvin Hsu [facility] MAGNESIUM 2020-01-03 04:49:00 [facility] SARS-COV2/RT-PCR ([facility] & 2020-01-02 22:28:[address] [facility] - REF LABS) [facility] HEMOGLOBIN AND 2020-01-02 17:29:00 [facility] TRANSFUSE LEUKO-REDUCED 2020-01-02 17:12:44 [facility] RED BLOOD CELLS [facility] ABORH, MANUAL 2020-01-02 12:16:00 Karla Montoya [facility] TYPE AND SCREEN, 2020-01-02 10:24:00 [facility] BASIC METABOLIC PANEL 2020-01-02 06:27:00 [facility] () [facility] HEPATIC FUNCTION PANEL 2020-01-02 06:27:00 [facility] PROTHROMBIN TIME/INR 2020-01-02 06:27:00 [facility] MAGNESIUM 2020-01-02 06:27:00 [facility] CBC (HEMOGRAM ONLY) 2020-01-02 06:27:00 [facility] TROPONIN I 2020-01-02 06:27:00 [facility] TROPONIN I 2020-01-01 23:55:00 [facility] BASIC METABOLIC PANEL 2020-01-01 23:55:00 [facility] () [facility] CBC W/PLT COUNT & AUTO 2020-01-01 23:55:00 [facility] Plan of Care Planned Activity Planned Date Details Comments Source Future Scheduled 2020-04-04 INFLUENZA VACCINE [facility] - Test 00:00:00 (#1) [code = [facility] INFLUENZA VACCINE (#1)] Future Scheduled 2020-03-04 INFLUENZA VACCINE [facility] Test 00:00:00 [code = INFLUENZA VACCINE] Future Scheduled 2006 BREAST CANCER [facility] Test 00:00:00 SCREENING [code = BREAST CANCER SCREENING] Future Scheduled 2006 COLONOSCOPY SCREENING [facility] Test 00:00:00 [code = COLONOSCOPY SCREENING] Future Scheduled 2006 SHINGLES VACCINES [facility] Test 00:00:00 (#1) [code = SHINGLES VACCINES (#1)] Future Scheduled [address] [address] [facility] - Test 00:00:00 (procedure) [code = [facility] [id number]] Future Scheduled 1977 Screening for [facility] Test 00:00:00 malignant neoplasm of cervix (procedure) [code = 804091275] Future Scheduled [address] [facility] - Test 00:00:00 [facility] cervix (procedure) [code = 953817904] Future Scheduled 1974 Hepatitis C screening [facility] [place] [facility] Test 00:00:00 (procedure) [code = 723117095] Future Scheduled 1972 COVID-19 VACCINE (1 [place] [facility] Test 00:00:00 of 2) [code = COVID-19 VACCINE (1 of 2)] Future Scheduled [address] [facility] - Test 00:00:00 malignant neoplasm of Medica l Center breast (procedure) [code = 123111543] Future Scheduled [address] [facility] - Test 00:00:00 [facility] colon (procedure) [code = 267020734] Results Test Description Test Time Test Comments Results Result Comments Source Tissue Exam 2020-01-04 11:21:00 Test Item Value Reference Range Interpretation Comme nts Case Report (test code = 104) Surgical Pathology Report Case: [id number] Authorizing Provider: Bekah Main MD Collected: 01/03/2020 12:51 PM Ordering Location: [address] Received: 01/03/2020 04:04 PM Service Pathologist: Ovidio Mcgowan MD Specimens: A) - Duodenum, Random biopsy B) - Biopsy, Gastric, random DIAGNOSIS (test code = 3220) q2sjySEhAJEkx9cqFHUloSHhFkVjBtKvFcDuLk pc rILpWAaqthChAAyai3VvY9VqWaXkGFtfzgMbMTLg LzqysrcmJLCzDNE7gvTgNQHdSJmtIPXkRLgqLw5d tTYypUviTsVvZZAsi4tbccRWaosbgBc7o8yeQPXj ExG6hADjWEwvI0bhtjKbeKSdQENsRJi9kYqfLuKz DURpl36lrhSfFjViFJOhYKHhXPOiaHPmY395p4vp d4vcvcWjqNE5JTAyOWD1MVljrzNjavT5LEaenJRh PdS8VQfxrgLgILVjB2QgQJ5mTTgiyENyTIYrJ2hj SSHnBFeoZDIuFXfjhUOgVKV9yKolv7Y0fSIzlEQo wQlnStKiWgKzUZYIs0HyCAo4oYdfP6XcQQCmOmJ7 lQLxZZFnIFxuPDMsRYHqywG8kO93HKlarjE4mKCy e2Vth02zg744lZ1ldAMkHCS8VLHcRVEutIJdNHHj RVJ1QQYixQIiK8n4RrHwrRFjR1I9BgIzzUShK7L4 WaOioATuF4U2TzTxoEUgLHOwnRDlFb5dvYBnsPFt qp5zrr76UEI7q3EvgLtkNYE1XNC9AaEbTp5qnYId POBfBU1hVcOfrEWlQWOvor76hMgnGUkdzcHlsE5o TmFeSE7ebQpun79yENUoNZ7kcO6rch5qfdZmMEzl bVMmwMQ7jphrXJO4BGJhbdZkb0Ovo2hrJsAddrAu W5wpL5HtSQPaJYVyJYWoZvVzwbSzx6Hwz3HxpUPt bVk2c1abNLLeQOHnzRukr6kkRZO8ZNSlU8D1zWVb h0onAQtoWVVgsKR1bibzTUlgSMUgoqR9ubvfVHpr LEWpwUO7fmtfWFjdRMQlNlN6dtewKPaqSZTrDDF4 PQqlv568CNM7OKykOuoaDKxmMNAcrjDxemDzzHpm ZGVjXHBsYWluXHBsYWluXGYwXGZzMjRccWxccGxh hQ9eDlEpVzUkUTyaPU5jCIMsJ5nbwWMuTUQbTNWp R4woBoDzqE0zvUsxBYveOrCrJdQjMKMTOhRHZN2R LE7UOYygZijQFMIXNdsyEYTqRR8iIDthfLKcxoal BqfkkxLoXAmuxnlqZGNcMFjbG1zcObTdANSyzFla Jxchd2YnVKMjUQWyIgwxabGuUPk6glSaOWFLZ8RF AqULSS5EU84LNVOTJYJGNURAJOJAXbHGCZNWEGnP K9MSHJVZT9wALEUNZNUFGJWFRxDeWq9eH4mMPboS FUQIKrEcIXjfauQslRpogL3jJsDzJuJoZGymWR8o AKMtQ0hqhAMzBOZrKDCrJ4qeWnAqzE3adUhlYPmq ZjJcZnMyMCAgICAgXHBsYWluXGYyXGZzMjBcbGFu ElYwCmWmdJorjYhtIzfiQwYxUPJuEAtqX8gnDoHl B8IuZZTbOwTzpKRpE1efHYoAD01IN7RUVgQCOPWU PcNJCZ0BOOKaNOfwZBHeUIIgZnFgsJNbIuHgNbWg wMkjfTwgNHmhXcCyZGNrIBxiS2icMmHbU7WhUKZo MwBklYGgUOUoWGSMJJmUJDvXOXWSJ8TyKrLTPNVE NRTmZ4YdK0HMHVASDQEMJ0CSJ9DkcXbdcE4lFfOj NdTqCVvuTL0lUMSxZ7pqtXZjPLSoCHKaD1rvRuRv fT4qzLokAdiqGdHqLaGlIFtldFUffRFsRHEdGZfa XGYxXGZzMjBcbGFuZzEwMzNcaGljaFxmMVxkYmNo RUTpWXgmJ7ktSyZeHcIfOXjvGNVtjBZhABGlwqUj z2FuYAGlCED9OLejRGqtnPMsTIYpwEvxp4qgI3Cn bSGqHPMaAHowGKZcALXjJiBygZlnnO5kQlRkFhLt LLflNU4gASCfC2gcmMXeERTjILIkL7bzZkDpiS2f aFxmMVxmczIwIEIuIFxwbGFpblxmMVxmczIwXGxh eckjGCYfIFrvF3uzZnMyFGTarRilMUyse0RbKSOm ACZmO5jhxlOuPMx2ziKqEJWKD00SW0uwVMhlxCTd rbvvEFifwkIdASonvstyEKNhRGdiH9jaQdOnVQWk sFgtAKgkz9ThECIcFUMnAyVvQmCNNS1UQSixqVFo kwmpXLxlzvLaCHzjlmlwSBWeXYjmT5kyFuNfXAIy zJmpCWwwi4HoVWIbFIUcN0bcsvWrMTb9hyByXKWJ I0XZYVXfUZcfIRGtEQEqUaAzbYYlViYqIvEiiBzr jZuaBOknXkKhNRPiNRabV9ryRwWmOoMkFZZANUYa eLbftT1yQsTuKaHsHDzwKJ8iTUGsP9tbnIOcBUUx OGKfN4agBmDweV0apOrxNGldNjOvQrFkSApmeUZy fBB0HVVupeypvDJfzmpqHFpbecVxPPyczwgnZJGb ACzgR1ubKiLjRAMmuJidBCqzd4BpIJUeIKRfBrDh AQgkqOPxbabcIKigslFbLJvkwtmiQJPvIXawA1gv UrHnAQVmeNplJJcmz8TfCMCcJXIxX0fkvcQdBKs7 vxLcGM5muDyrrT5lLcTgCePbSOraGS3pDDYzV8za hWMjMRJlKTHuQ4naByJtcR5mcEvbVBonsxRhKHBb xXwmnG7tVbIvNgIzHLtnRF5rLYJyV7pbfCTaBWDe ANUcE2ahLuPafQ1ksKpfMNbsXeWgIsHqPRgghXRq hLClW1jLB20VGmZAOuXSELzVIITWFPGOZtnXGFVw kNeseE8pOxCiBpHpAHgdLZ8zZMPoX9ampQEjDTVf HQBiI1daKsSgrZ6eoZioWUhnfvGgUXODSgGrTRWe YWluXGYxXGZzMjBcbGFuZzEwMzNcaGljaFxmMVxk FbIrTVCrWMheX3coLbJeY2PiFBKrAbYbkERbF2jm ZsZFN1UFVwMeH3YDEOLYBAIRZAbliMvbaK6zMfHi BwUmYKynOJ4pKTZaC6oniEMyAECtLKGuE7lvNrMo xQ7vkZbeKXqzhwFuLZOpcxMiFDJgBMyjHXCoIUIo MjBcbGFuZzEwMzNcaGljaFxmMVxkYmNoXGYxXGxv A8xvHvHkC0MkNWOhIxLvmYVgW9azOIkjhHYzvxuz JXxfdhTkPCrvdnuhARQdALnqQ7ucOzChSRPzwKmr YAkkb0BhRLXfCVZjJnOzVUljzNDjdmipXFczplIq VUzhcrmoTQXhSCfkR3yvAfRcTDQduMnzWLovg8Xp TLRdRPZgD8tdacYyBCy0wdIaICLYXGmPXBcJYQTU O7LnZIXJUEIFUhGPXKGKHYJFZG8TINNXBxtAHmvS WGIsWfivC2ZKYOaCUxPWQJCEXudlK3NLMQ0fgDBb SROzkkHmv4FtLFGyQDK3CDqbNWpcmCjsuHDdallo MQenguT1ZBQkIVzsUEPaFEArHzRqbOOaXoIxGuOf iCyrtOwhNHsxLfIbAIFxBVsjG3kaGrAcFcBsYIMm XHBsYWluXGYxXGZzMjBcbGFuZzEwMzNcaGljaFxm KDyoYeFgFAYvKTliA4qbWgCeN3NbBKSoVsDyxTSv P4meMSbphNWyrzztPUcwipPrOHupkvisBJJtAHym V0jhCuEjSAJixIrlYEkld2IxRMXqOVOaMzLkZIkl fXTvxqieJTdcisUtWXfjbdofKCWfBBctJ9guWjZz RQRkeSwuOWepp3CsDTIoKAHiF8duliBhJWn5oyRm BGPEALrIFOfBSCWXH9SfWF7ANGQGWD9YLCYEIQJE IHjZW8qDSJGFCMBLPHUFERIpGW8SEVmUScYAD8ks tQxdwW9uPxYvPkDdSRccOI2nMWIyZ8nawWObRTMq KNCoM1xaJoPfeO5izSitFCgxtiKcRSKgpficYFW4 y2beuRXlUSSqiYMwYHXmKScsduYsTMAzGxnfnqid QWZzTOO2lwQlJAQcLPviYDIfJCegLb8xxXRtoJnd FjGbTIHlv3zwwqZJpxmgsQf3m0rhAHHkBuY5aGNv RUsmF8wlzmKtuSZlWAYpJOb1nR53WTPuuF7gaAAd ZVvcsbNxRhP6DHnsGKYgUjS7UWTcoZHzEBNqV3az WEBaJFxsBDLcQQthzGTqNVK0lGgxq7F1zMVkfKGa vQkqUdOpLkZdBaUCb5PcTLc6nAzgJ7DhKJIoSzR1 iZOdPQUiNIlnEVTyZIEhpuZ5aL29JDqyitX0eIWd k5Cjn01lf179mB0prIEgGUD4DBUvTVObuEYqTQWu BOV7WTHsyVTgK0duHXGjCU2bxkcuOWaeYLbaEGHc hAF1NVLwrLRuF6HnPNRqRGrwSCXzoff5MgWlHq0h rBVkmCatIXnvx9oyf5tfpXFpSqe6QAGlPsBlCujt WMmcc2Unq2hcMYGkcf7vEVY3aLBsbGvnt3M0jJWc YBScbNDtWPRrFY7gzBFvITTdqT7usciuEOOjOoJy tkltNWHepKwbemXcLh3xwFwyQDG0EWtrO9zctN1r KhQ4ZIhsB3wshV1rBLr2DTxzIUTjpHO8kaO6OJAi zZBaJ5VceW7sTPHzZP2gojv4p9llHSY2QOtqOHCj VaP6qiJ8VBKbjRNkKEPjpYhwDDfah822DJX0UoQb XQMxd0JjZ5TjzIayN91dpNarZ46wXCXhyMvcbU2r xUkpiA0uYbVdNcHkEIolkLgsOA8gHPClR7hewXMd GTQmGHVwH6gkByVegJ9zzJsgKAnhrcAeUUKlKdb2 IPKjlJYaCHSoJzz9SGYhBPSbY96roajsAED2tL9o k7wpz1QnROhaEKN3OXZvb88kMRrvlbT6BZoaMx7s IcMdCHN6PEseHFW4sA== CPT Code(s) (test code = 3357) w6cwtWJiPWSxfZUbXpEmIEAxNMCiq0muZGMx bGFu YsGjHwCgQwAjJgfepTNyORKyUxEoc8vvc485yRZa y9ymXMAzGbD8fXScCGXnvPFoF870z7nrb1oyqlTh lVE0MRLhZIE0LUeamsXrcoS2HPfoiWZuPuL1VRgf mmMzERglibKokoApGtc0BMCoR028PPW8mElks6vp LRX1IMItLKVtUmLdAm8aiFRmW286HFJuTBPKXQCs cNf8SBXzlzWzdsIhsHEYg729F246f3bdDLTzseWe zVuZnnhmb9eqW545LWCcjIXfgoYoFyHhNPJhvVFk nIU9WGHlDM4cdsocIhSbVB3pcnnbKoGxZD2ygds0 ZaUpHJ2quguuFlGjRCkeXTBozgugZWMfm4Dteqgi KO6aY5Auq3D3cN5jgDEtWNDpuZNvVcWrVKQshy7a zHWdTEmam6LjQUT6aqL7oMVtoPRuVOEpAS82Oxjp y0DcVqetRQR5HMVuwxNjn3Hve9ekXsAgjyTdT7qs K5CtOJYdJTVoKGEdFeJsiyHia2Nby9JyaZLnbEa5 l8jfLCUkGRErbIbtl6wrZDU7VITwU5Q4qDPww0pn FTltPTBvgQW8ymzfYVyjBBJubbS3rvtrLHrjZKKf hLB5izqcQXuwVKVcKkG5rmrsBIqbUPZbHRD6SYum s940JXJ4XXgmZcryQHbbAZTcbyLqzsKnuPisGJRt TNVhSIqhHFTiXDbeZLVgCIHiAhWliEvtgGspaA2x NdLpFdVpQPagVH3sOFZvM6fubPSpVZDqMTOhI9xl KyRqrD5vfHczHXlgbzPcDOv1BbE3XTZdcRBlLGk4 MzEyXHBhcn0= CLINICAL HISTORY (test code = 3356) b7jmgOUnNYIjlVQrWjAcXTMfECEqi7t cZGVmbGFu WtWxRnKeKwXdEuuhxFFpLNJvVkRwa3snq819sPAy t4jbIJMxBnI8kJGrHFUqpGGgM529VBRpXFfla1oj w5TuAJQlqLWso1V8CRKStorqoSq0wFfaU36oo9H1 LpsrC4loABMyEAstMIKxWXfmqBXpRRR3KNXfPUY2 AYggtoPmxqK5NOpuzGJsIjQ3WQg3h6tbwCytDZYc CTQ6e4eyBIxgdkRuUG6pdj6fuPc4k8mwmhIxSQDp UXAuhJXTKWOqZ2XibCzeRb2xnSe0eKkoFyprGRA0 Ehy1YU6tzb88mlc8wLheQMSlzsouOnD0LYpiDCUr cljvYCw8FXncXKCndSrbVMsdELHmmppmVQwmUBMy nCulCHxyAUNnPptmPJcgWICpTMX5EJfvp449CLF9 TLfmc6rnf1tqiUZgNfl4XEXyGjStFehmKEzph9Eu h1kdLVFyom2oLTH3uSIgzFnxv8R8lOImBYQeuLEo njZxGFBzLjA0NOroGX3gva70XNZfZHX1he2buAWw pWtuffNkyFQxRSmmI3UjEDXch044GXTsS6BbMTEc u3L7muFnSzJeQJZgfKA2rjR9YJDqEIq0rSAkmmP8 ocPdyCUcD4ntmX55CvPhnLZmO8JaoT61EfBrtVGy Z8HnqC33TiOdaQYrR7XvcM53CqWmcDVxUDQkvBTn Zd2knIZyyHHvy1HitKWtSNymN06aj699EARjwfXl I4cgnZRkehiacOQylhtbIXconiHgYWHoEKViQGim ENCdYDYjYsFwePupiY1dPhBcIeSvREAOcu7gWMP4 wcK5WZYuaSGcGFBfPH5rH58plXOxcS9ne8hcoEXe GSSlXJMkjxHxyM9zoA6hOWQzDDnzf2LzjoljU5qs YmxlZWRccGFyfQ== SPECIMEN SOURCE (test code = 3377) y0obsTYhUJGerYTxVyCpVSWeWQCac9nn ZGVmbGFu BxMpQoCxPpHvAixsrLIuFBUkWrQef6zjb384iZCg g3rvQIKnAyH1qAVwFXOtwVEdT726i2xdo7jnvaCg lNN6CNJsYNX3KRazgtSqoiS0OJchmZHsRvQ4CYzv dhXxNOeeeiRdnmFjWni7QWEhF284WWF2iLzvq8hy VZW5HSTyGJGlCeMeNg1wsXOsD038QRQjDJUIWASs oPn3SBFingBnbtWakVGRu701L488b4ofUHWbdrFq fWoOzrrur6xdZ199YGFzhDVujxOiGgXlOJEkvZIy dAY9MKBnHI1hocnzRuHeOC1dnpfeFyXgRO8fasl9 MxZbXO3trwlqYiSbEKhmFHEdkfcnEWUms8Ozioud SI9vU7Abe2T8kB2rbXTxPADyzVOqZiVhRAAwsn4s hXEtDBdvc3MaVOO6giB3cZEfvVJwFGAtZU08Yvlo z4WqSilsOUA0PCPgcySnk6Irq8jtNaYqpeEqS8uw F0OkOPOwEGXyGSUrQkWglhMwk1Gzc7YvfYBqqUy4 t2ykJLQdHSSivJnkq3qlFXF2MJUyM8R8fCHth0ct AUnyLAIqdNJ7awzqJVmwVCJptmM1cspgSDtiQNDx xLT9pkgsMEfoPLSdOgP2dkwwRXsnXWOkAUI9ZEto f128BHZ7FKxwOzvcMFxbKTEuijFfgqGpdTfkOSKp CYSoYTknOZVbPRcnJGElTSOnGqYqvVxftEzpsN9g FuVpIoHfZXgtRD4zTVOrC8znmZGeQKTxUJXiT9ya BgDzrB2wfSbeCVuhapZeZSNuYVZ3t6OygrTvVLQb wgRaaBKbgU6gf7y3AEHtDRZlq0ZzwFFzSSR9siis IHJhbmRvbVxwYXJ9 GROSS DESCRIPTION (test code = 3366) a5jitLOsENNbdPGeSgNtORWmPFXeb6 lcZGVmbGFu [file] voivLNvaolDqAYKbncnnrrxjaOedaA6dEyBoMwIh MOGzCvXyhKSnYbDpoCKrRtHsuVUdCoQodL6zHR4c LSbmYY4wTNmbVZ9pTDBcPNTfPiTtaQKqEfRhtKMp LrOfJ86pVLruhDToxsirFWmhchAbXLWvYVFhkWXk sO0axjFnrsZfjMQqyUS2GOZmRT97pFVxbRvaTw0y bE38bG0gVIFbxGQuKFQrt22tcM8qI5Rpu8A3fWAy ZKNgCOjpLIJaDTDoLiEzXcBrKZTKLy2smWdsTKL1 MICROSCOPIC DESCRIPTION (test code = p2edoMQqBKKdbIYfMiRrQGHtBGWkb7 [place] [address]) XwQtIvFhXcDnQftkdFJeUXEeRtRkl9zxr971rSVj h1yxWCHsZuR6nIVcYZLitKYyU427AFOkNGsiy1ce c3OnVTVmmFPoj9U1DHRNmukrzDb0iPfaT06xs6F0 IbgbO2mdLOHqFWgjCQCfMZshaAObHSS1HRDcYUB5 NFacaoXqhzM7UZnvhLDgDoQ1UKl3o2unwVsdPKHk RLP7r7cgTTrrupOiMV6ewz3qsVq4a0rcjbZuOVRu LGOdpCZXTQUsO9GlpJlnKw4jbUw6aEzvJnfxTUM8 Qrs1EB6xlw25tgv7cFkxNBUfekuoPpM1NByzLQUk eumrVNh3DUxoFNWslEqyHWzmDEHaqgyaRRrkDWMi oNqsYKtkJMOlWuczHNzaKTLkMDH2PWtwm351NFK1 YXcit0ypo8zieFKxPlr6JKEbFfOdCqonWWwnb7Ic a3luQFWkld2yVDH4rZPrjBugp1T8jWFmHSSbxGUj mkGkFWGbku71pYOwuPAuuPNdmv3ltiAcnOQhxDAq RQT0bRWnftBrDLIxtEMrUDPgQN2kkWQuZKAewP4s mjzhZCOfQpTaeiqzXJNerMxhnxAzFg6txTlbLTL1 QUujF4bwnW1hDuY5WLnlN6raxZ9cHCy3UXjgeXR0 ZRMvdM9tOT6ooqdis3xpRxLzXV0ztusiw6ggXaQm PR4rluq6x9byEyXyOR5vhojok0ogOkDsGPwwLNPm clzfFUEij3OngrajZVDyt4MaX1QrfPtxS27qfFhf C06gGPAbyDnhwI7kvKhjnJ6qRlQxMiIfJIlgeVqt bGFpblxmMFxmczIwXHBsYWluXGYxXGZzMjAgUGVy Gg5psWRyHpngQTNhaFSamG== SPECIAL STUDIES (test code = 3376) n6ekdJOhBWPxu4nsKLVnwAFrGgTaGwZm ZnRuYmpc bGOnBPzdriMiGTeew0GgC6DjCsOzMFhrshRiEZXg TmgwnjhjUTNwQCD2ciQhPYUtWLalLLErPAhnIo8u kOXauXeyHkAlLCMjl8zeqfFQjhdvlWh9s4glAHRv TlD4iOFvRPnrL2cevtDuhAUqJ4DsjHDurRt6w2dh AkYwNlH0jBNbZHwyE7crjsSjrVOuFJIwPSx9zX29 GUYuxR1xoBSrKVracrNgGfY3RQytEWPnDtW4DJGa fIHxUMJbY3tmGEScMSuwGBYfWDlqyXAkXJV7pCth c0B1gQOkaSYigRsjYmQcVyDrGhUGj1XqDNh2cJko G8UuVALlMaB3vJViVJRsZKlhERMyOMSjemG3uCfv rkDjy30wdYZzKQQlBRTyJnJksBocXNGsYUJSi4Vx oImhQKX5hZq8lQtsKjhqKDD4Fbx2DG5imm00xos5 iHtmLWSapmdgOfI9SRdgMMAjhreqXLg3VVhjRIQf cUO0MHRedEVpA5WhPDVkXE0ddam7RBK8OIavERKb MtP5OEZfgCBiWPJswZptYDksf364CWM2JmXqXO5t R3Lhb6E4hR5fnVIpGRJwhXBhEsTjNAOwmi4fxNJj WWvat7KiXIW4rnP9jEMabVZiCHJoSE27Zffwl4Nd Xgile8BoK37eyAI0CWamn0ldTS7kRzJ7peOdYBea f9yzwZ4vShM8BAdqWL0yZG9cNIIcxX2rawgzJOIu TeNseazwPVWpdUrzjdFmEx9ymGkzXQB0CKsyO5us yA3yXyW6RNmjG0hpqD3jDKw9JAovhPT0AWFexD0b MS4zsoysx2pqNAncDOdeKPLvnlI1wzK2REHhcFPt A8KgvV8vTMMqGC2aphvmr3ewUCZ7RXdfWJIuMVH5 BzUcTXEmo3Jquxq0HmFvj4TxePUuVDgvG35km641 ENTqcuNaG5cvqTHxfilckNNzoxarGEwgfvK2UNPi XHBsYWluXGYxXGZzMjJcbGFuZzEwMzNcaGljaFxm RIbxEvVpNOXcTPinI8acIrMyQ2UiJRZlRlEqWRqf KSbikTOjeXUkyVZ0nL0dEE0vNCAjuLXxR2VjWWNz seRoeERgXFX1eNSbaSXrBF6rOYhrnAGyv3wkg9Pt E1gqyGvblNP8EK4bFBSpMOExSLxuz7ZpsA4tUnaf iJGpwhayDHwgqqJiLPeqyeghBYQaPHbzA5yxFjZb RGPrnDkzSBzqb0TdCJJyELAkIfivinKlQVb7gtVb RYCficjeDFHzdYmxfP7bEuJiDzLjEdavYG4vGSNw Z9wsmSEuZLGoSERhW2yiCoKsmD2mzMtkOLxmAdAr WrYgZmREt350sa3cSHXacORnqzVEhLTnlJ7kCDek HBexMKzqdFXkVJzgs1uyBVNbk2k0tRHdVJFzipLg o7huLYyydaQqZWBbeVSyvBCvCNLrs36hDQeufGlm dRddEHXlb5RqqXioj5RaLcQdRFtrw3VlG33xeUSf dZJubDnfBILntfXmLYZim40ya4wmTDWhYoS1dXGg sWD1nBRofMLcb6CboLucUHKju4glMHXkgs3kwhpq cVNsp2HxzU7bdqxmSFrzsYKadqHdGHWpn2v0pNYz OWCsLWMfAOlhuTg9CKHzq184vv4gmwA4jWZsAHR0 YWlsYWJsZSBhcmUgZXZhbHVhdGVkXHBsYWluXGYx XGZzMjJcbGFuZzEwMzNcaGljaFxmMVxkYmNoXGYx WRllQ9rbLiRtX1XwCIGtAwEmjGBaS0dyyNVsPRKu YWluXGYxXGZzMjJcbGFuZzEwMzNcaGljaFxmMVxk DwToACMyGHkzK6zjFsEiZ5NgADMkZwHpXXeirIMc qgksBGbleoQkUKhhsmbaXKIuGRfjZ2uvWpGqXWXj zNmbLVthr3PfUKLaJASnPmacgmDjHGh6kiPjKSCo jpjxtQDnlaneMIjskmRkMTkhcwpnADStXEzrZ4yg [file] XeacOTX0sD== [facility] [place] [id number] 11:21:00Surgical Pathology Report Case: [id number] Authorizing Provider: Bekah Main MD Collected: 01/03/2020 12:51 PM Ordering Location: [address] Received: 01/03/2020 04:04 PM Service Pathologist: Ovidio Mcgowan MD Specimens: A) - Duodenum, Random biopsy B) -Biopsy, Gastric, random A. DUODENUM, BIOPSY:- DUODENAL MUCOSA WITH PRESERVED VILLOUS ARCHITECTURE AND NO SIGNIFICANT DIAGNOSTIC ALTERATION - NEGATIVE FOR FEATURES OF CELIAC DISEASE B. STOMACH, RANDOM BIOPSIES: - CHRONIC INACTIVE GASTRITISAND REACTIVE GASTROPATHY - NEGATIVE FOR HELICOBACTER PYLORI ORGANISMS BY WARTHIN STARRY STAIN - NEGATIVE FOR INTESTINAL METAPLASIA, DYSPLASIA, MALIGNANCY Signing Pathologist Direct Phone Line: [phone] signed by Ovidio Mcgowan MD on 01/04/2020 at 11:21 [id number]: upper endoscopy biopsyPre and postop diagnosis: GI bleedA. Duodenum random biopsy; B. Biopsy gastric randomA. The specimen is received in formalin labeled with the patient's name, accession numberand "duodenum" and consists of two perez-pink mucosal-covered piece of tissue each measuring 0.2 x 0.2x 0.1 cm. The specimen is submitted entirely following filtration in cassette A1. B. The specimen isreceived in formalin labeled with the patient's name, accession number and "biopsy, gastric" and consists of multiple perez-white mucosal-covered pieces ranging from 0.3 x 0.2 x 0.2 to 0.2 x 0.2 x 0.2 and 0.1 x 0.1 x 0.1 cm. The specimen is submitted entirely following filtration in cassette B1. HS/plPerformed.The interpretation of this case included the use of immunohistochemistry or special stains.Control Slides Examined: In-house known positive controls were evaluated along with the test tissue.These control slides run alongside of the patients sample show appropriate staining. Internal positive and negative controls when available are evaluated Immunohistochemistry technical testing was performed at [facility], Pathology Laboratory where it was developed and its performance characteristics were determined. It has not been cleared or approved by the [place]. Food and Drug Administration. The FDA has determined that such clearance or approval is not necessary. The test is used for clinical purposes. It should not be regarded as investigational or for research. This laboratory is certified under the Clinical Laboratory Improvement Amendments of 1988 (CLIA-88) as qualifiedto perform high complexity clinical laboratory testing.Prepare Leuko-Red [id number] 23:54:00 Test Item Value Reference Range Interpretation Comments CROSSMATCH (test code = 2264) COMPATIBLE Unit ABO (test code = O Pos [id number]) UNIT NUMBER (test code = [id number] 934-0) Status (test code = 5851892) TX_TIMEINCHART Blood Bank Product (test code RED BLOOD CELLS = 2263) PRODUCT CODE (test code = H1088H92 933-2) [facility] [id number] 05:33:00 Test Item Value Reference Range Interpretation Comments Sodium (test code = 142 meq/L 236-636 2817-2) Potassium (test code = 4.1 meq/L 3.5-5.1 2823-3) Chloride (test code = 110 meq/L 98-107 H 2075-0) CO2 (test code = 27 meq/L 22-29 8-9) BUN (test code = 29 mg/dL 7-21 H 3094-0) Creatinine (test code 1.16 mg/dL 0.57-1.25 = 2160-0) Glucose (test code = 84 mg/dL 70-105 2345-7) Calcium (test code = 8.6 mg/dL 8.4-10.2 06390-9) EGFR (test code = 47 mL/min/1.73 [place] [address]-7) NOT ACCURATE CREATININE CLEARANCE IN PREDICTING GLOMERULAR FILTRATION RATE . ESTIMATED GFR I S NOT APPLICABLE FOR DIALYSIS PATIENTS. MARYJANE (test code = MARYJANE) Propellant Charge Loader ID - BISI Araujo Lab Interpretation Abnormal (test code = 75076-0) [facility] function [id number] 05:33:00 Test Item Value Reference Range Interpretation Comments Protein, Total (test 5.3 See_Comment L [Autom ated code = 2885-2) message] The system which generated this result transmit tram reference range : 6.0 - 8.3 gm/dL . The reference range was not u sed to interpret th is result as normal/abnormal . Albumin (test code = 2.9 g/dL 3.5-5 L 39038-6) Total Bilirubin (test 1.1 mg/dL 0.2-1.2 code = 1975-2) Bilirubin, Direct 0.6 mg/dL 0.1-0.5 H (test code = 1968-7) Alkaline Phosphatase 70 U/L 40-150 (test code = 6768-6) AST (test code = 26 U/L 5-34 1920-8) ALT (test code = 12 U/L 6-55 1742-6) MARYJANE (test code = MARYJANE) Propellant Charge Loader ID - BISI Araujo Lab Interpretation Abnormal (test code = 96034-2) [facility] 05:33:00 Test Item Value Reference Range Interpretation Comments Magnesium (test code = 1.7 mg/dL 1.6-2.6 93133-7) MARYJANE (test code = MARYJANE) Propellant Charge Loader ID - BISI L Lab Interpretation (test Normal code = 53948-4) [facility]2020-[facility]-01 05:33:00 Test Item Value Reference Range Interpretation Comments MAGNESIUM (BEAKER) (test code = 1.7 mg/dL 1.6-2.6 627) Propellant Charge Loader ID - BISI QUINONEZASIC METABOLIC [id number] 05:33:00 Test Item Value Reference Range Interpretation Comments SODIUM (BEAKER) 142 meq/L 136-145 (test code = 381) POTASSIUM (BEAKER) 4.1 meq/L 3.5-5.1 (test code = 379) CHLORIDE (BEAKER) 110 meq/L 98-107 H (test code = 382) CO2 (BEAKER) (test 27 meq/L 22-29 code = 355) BLOOD UREA NITROGEN 29 mg/dL 7-21 H (BEAKER) (test code = 354) CREATININE (BEAKER) 1.16 mg/dL 0.57-1.25 (test code = 358) GLUCOSE RANDOM 84 mg/dL 70-105 (BEAKER) (test code = 652) CALCIUM (BEAKER) 8.6 mg/dL 8.4-10.2 (test code = 697) EGFR (BEAKER) (test 47 mL/min/1.73 ESTIMA TRAM GFR IS code = 1092) sq m NOT ACCURATE CREATININE CLEARANCE IN PREDICTING GLOMERULAR FILTRATION RATE . ESTIMATED GFR I S NOT APPLICABLE FOR DIALYSIS PATIEN TS. Propellant Charge Loader ID - PIAYA LHEPATIC FUNCTION [id number] 05:33:00 Test Item Value Reference Range Interpretation Comments TOTAL PROTEIN (BEAKER) (test code = 5.3 gm/dL 6.0-8.3 L 770) ALBUMIN (BEAKER) (test code = 1145) 2.9 g/dL 3.5-5.0 L BILIRUBIN TOTAL (BEAKER) (test code 1.1 mg/dL 0.2-1.2 = 377) BILIRUBIN DIRECT (BEAKER) (test 0.6 mg/dL 0.1-0.5 H code = 706) ALKALINE PHOSPHATASE (BEAKER) (test 70 U/L 40-150 code = 346) AST (SGOT) (BEAKER) (test code = 26 U/L 5-34 353) ALT (SGPT) (BEAKER) (test code = 12 U/L 6-55 347) Propellant Charge Loader ID - PIAYA LCBC (Hemogram only)2020-01-03 05:18:00 Test Item Value Reference Range Interpretation Comments WBC (test code = 6690-2) 3.8 See_Comment [A utomated message] The system [employer] generated this result transmitted ref erence range: 3.5 - 10 .5 K/L. The refe rence range was not u sed to interpret this result as normal/abnor mal. RBC (test code = 789-8) 2.75 See_Comment L [Au tomated message] The system [employer] generated this result transmitted ref erence range: 3.93 - 5 .22 M/L. The refe rence range was not u sed to interpret this result as normal/abnor mal. MCHC (test code = 786-4) 31.8 See_Comment L [A utomated message] The system [employer] generated this result transmitted ref erence range: 32.2 - 3 5.5 GM/DL. The refe rence range was not u sed to interpret this result as normal/abnor mal. Hematocrit (test code = 23.6 % 34.1-44.9 L 4544-3) MCV (test code = 787-2) 85.8 fL 79.4-94.8 MCH (test code = 785-6) 27.3 pg 25.6-32.2 RDW (test code = 788-0) 17.4 % 11.7-14.4 H Platelets (test code = 108 See_Comment L [Aut omated message] 777-3) The system [employer] generated this result transmitted ref erence range: 150 - 45 0 K/CU MM. The referen ce range was not u sed to interpret this result as normal/abnor mal. MPV (test code = 10.1 fL 9.4-12.3 19481-6) nRBC (test code = 413) 0 See_Comment [Aut omated message] The system [employer] generated this result transmitted ref erence range: 0 - 0 /1 00 WBC. The refere nce range was not u sed to interpret this result as normal/abnor mal. Lab Interpretation (test Abnormal code = 49577-8) [facility] (HEMOGRAM ONLY)2020-01-03 05:18:00 Test Item Value Reference Range Interpretation Comments WHITE BLOOD CELL COUNT (BEAKER) 3.8 K/ L 3.5-10.5 (test code = 775) RED BLOOD CELL COUNT (BEAKER) 2.75 M/ L 3.93-5.22 L (test code = 761) HEMOGLOBIN (BEAKER) (test code = 7.5 GM/DL 11.2-15.7 L 410) HEMATOCRIT (BEAKER) (test code = 23.6 % 34.1-44.9 L 411) MEAN CORPUSCULAR VOLUME (BEAKER) 85.8 fL 79.4-94.8 (test code = 753) MEAN CORPUSCULAR HEMOGLOBIN 27.3 pg 25.6-32.2 (BEAKER) (test code = 751) MEAN CORPUSCULAR HEMOGLOBIN CONC 31.8 GM/DL 32.2-35.5 L (BEAKER) (test code = 752) RED CELL DISTRIBUTION WIDTH 17.4 % 11.7-14.4 H (BEAKER) (test code = 412) PLATELET COUNT (BEAKER) (test 108 K/CU MM 150-450 L code = 756) MEAN PLATELET VOLUME (BEAKER) 10.1 fL 9.4-12.3 (test code = 754) NUCLEATED RED BLOOD CELLS 0 /100 WBC 0-0 (BEAKER) (test code = 413) SARS-CoV2/RT-PCR (Asymptomatic ONLY)2020-01-03 00:11:00 Test Item Value Reference Range Interpretation Comments SARS-COV2/RT-PCR Not Detected Not Detected, (test code = Negative 81260-2) SARS-COV-2 [facility] PERFORMING LAB (test code = 27463-6) MARYJANE (test code = Negative results do not MARYJANE) preclude SARS-CoV-2 infection and should not be used as the sole basis for patient management decisions. Negative results must be combined with clinical observations, patient history, and epidemiological information. A false negative result may occur if a specimen is improperly collected, transported or handled. The limit of detection for this assay is 250 copies/mL. This SARS CoV-2 test is a rapid, real-time RT-PCR test intended for the qualitative detection of nucleic acid from SARS-CoV-2 in a nasopharyngeal swab specimen collected from individuals suspected of COVID-19 by their healthcare provider. This test has not been Food and Drug Administration (FDA) cleared or approved and has been authorized by FDA under an Emergency Use Authorization (EUA). This EUA will be effective until the declaration that circumstances exist justifying the authorization of the emergency use of in vitro diagnostic tests for detection and/or diagnosis of COVID-19 is terminated under Section 564(b)(2) of the Act or the EUA is revoked under Section 564(g) of the Act. Fact Sheet for Healthcare Providers:https://www.[employer]/Documents/Xper t%20Xpress%20SARS%20CoV- 2/Fact%20Sheets/3023802 %65CWQY-SRD-1%20HEALTHCA RE%20PROVIDERS%20FACT%20 SHEET.pdf Fact Sheet for Healthcare Patients:https://www.[employer]/Documents/Xpert %20Xpress%20SARS%20CoV-2 /Fact%20Sheets/3023801% 32BADK-ELE-0%20PATIENT%2 0FACT%20SHEET.pdf Performing Laboratory:[facility] [place] [address] [facility]2020-01-03 00:11:00 Test Item Value Reference Range Interpretation Comments SARS-COV2/RT-PCR (test Not Detected Not Detected, Negative code = 5257904) SARS-COV-2 PERFORMING LAB [facility] (test code = 7102112) Negative results do not preclude SARS-CoV-2 infection and should not be used as the sole basis for patient management decisions. Negative results must be combined with clinical observations, patient history, and epidemiological information. A false negative result may occur if a specimen is improperly collected, transported or handled.The limit of detection for this assay is 250 copies/mL.This SARS CoV-2 test is a rapid, real-time RT-PCR test intended for the qualitative detection of nucleic acid from SARS-CoV-2 in a nasopharyngeal swab specimen collected from individuals suspected of COVID-19 by their healthcare provider.This test has not been Food and Drug Administration (FDA) cleared or approved and has been authorized by FDA under an Emergency Use Authorization (EUA). This EUA will be effective until the declaration that circumstances exist justifying the authorization of the emergency use of in vitro diagnostic tests for detection and/or diagnosis of COVID-19 is terminated under Section 564(b)(2) of the Act or the EUA is revoked under Section 564(g) of the Act.Fact Sheet for Healthcare Pro viders:https://www.[employer]/Documents/Xpert%20Xpress%20SARS%20CoV-2/Fact%20Sh eets/302-3802%48VHTM-WJS-8%20HEALTHCARE%20PROVIDERS%20FACT%20SHEET.pdfFact Sheet for Healthcare Patients:https://www.[employer]/Documents/Xpert%20Xpress%20SARS%20CoV-2/Fact%20Sheets/302-3801%20SARS-COV -2%20PATIENT%20FACT%20SHEET.pdfPerforming Laboratory:[facility], [place] [address]Btqthsnvbv and osxsuwesph3208-09-12 17:43:00 Test Item Value Reference Range Interpretation Comments Hemoglobin (test code 7.7 See_Comment L [Auto mated = 786-4) message] The system which generated this result transmit tram reference range : 11.2 - 15.7 GM/ DL. The reference range was not u sed to interpret th is result as normal/abnormal . Hematocrit (test code 24.3 % 34.1-44.9 L = 4544-3) MARYJANE (test code = MARYJANE) Propellant Charge Loader ID - [id number] Lab Interpretation Abnormal (test code = 76740-2) [facility]MOGLOB[facility] AND [id number] 17:43:00 Test Item Value Reference Range Interpretation Comments HEMOGLOBIN (BEAKER) (test code = 7.7 GM/DL 11.2-15.7 L 410) HEMATOCRIT (BEAKER) (test code = 24.3 % 34.1-44.9 L 411) Propellant Charge Loader ID - [id number], [id number] 12:35:00 Test Item Value Reference Range Interpretation Comments ABO Grouping (test code = 2588) O Rh Factor (test code = 2589) POS [facility] and screen, [id number] 11:33:00 Test Item Value Reference Range Interpretation Comments ABO/RH AUTOMATED (BEAKER) (test O POSITIVE code = 2260) Ab Scrn (test code = 890-4) NEGATIVE [facility]rop[facility] [id number] 06:59:00 Test Item Value Reference Range Interpretation Comments Troponin I (test code = 0.03 ng/mL 0-0.03 14778-5) MARYJANE (test code = MARYJANE) Troponin I (TnI) levels must be interpreted in the context of the presenting symptoms and the clinical findings. Elevated TnI levels indicate myocardial damage, but are not specific for ischemic heart disease. Elevated TnI levels are seen in patients with other cardiac conditions (including myocarditis and congestive heart failure), and slight TnI elevations occur in patients with other conditions, including sepsis, renal failure, acidosis, acute neurological disease, and persistent tachyarrhythmia.Opera tor ID - PIAYA L Lab Interpretation (test Normal code = 51776-4) [facility] [id number] 06:59:00 Test Item Value Reference Range Interpretation Comments TROPONIN I (BEAKER) (test code = 0.03 ng/mL 0.00-0.03 397) Troponin I (TnI) levels must be interpreted in the context of the presenting symptoms and the clinical findings. Elevated TnI levels indicate myocardial damage, but are not specific for ischemic heart disease. Elevated TnI levels are seen in patients with other cardiac conditions (including myocarditis and congestive heart failure), and slight TnI elevations occur in patients with other conditions, including sepsis, renal failure, acidosis, acute neurological disease, and persistent tachyarrhythmia.Propellant Charge Loader ID - PIAYA LHEPATIC FUNCTION [id number] 06:55:00 Test Item Value Reference Range Interpretation Comments TOTAL PROTEIN (BEAKER) (test code = 5.0 gm/dL 6.0-8.3 L 770) ALBUMIN (BEAKER) (test code = 1145) 2.6 g/dL 3.5-5.0 L BILIRUBIN TOTAL (BEAKER) (test code 1.1 mg/dL 0.2-1.2 = 377) BILIRUBIN DIRECT (BEAKER) (test 0.6 mg/dL 0.1-0.5 H code = 706) ALKALINE PHOSPHATASE (BEAKER) (test 66 U/L 40-150 code = 346) AST (SGOT) (BEAKER) (test code = 22 U/L 5-34 353) ALT (SGPT) (BEAKER) (test code = 9 U/L 6-55 347) Propellant Charge Loader ID - PIAYA [id number] 06:55:00 Test Item Value Reference Range Interpretation Comments MAGNESIUM (BEAKER) (test code = 1.7 mg/dL 1.6-2.6 627) Propellant Charge Loader ID - PIAYA LBASIC METABOLIC [id number] 06:55:00 Test Item Value Reference Range Interpretation Comments SODIUM (BEAKER) 142 meq/L 136-145 (test code = 381) POTASSIUM (BEAKER) 3.8 meq/L 3.5-5.1 (test code = 379) CHLORIDE (BEAKER) 113 meq/L 98-107 H (test code = 382) CO2 (BEAKER) (test 23 meq/L 22-29 code = 355) BLOOD UREA NITROGEN 40 mg/dL 7-21 H (BEAKER) (test code = 354) CREATININE (BEAKER) 1.22 mg/dL 0.57-1.25 (test code = 358) GLUCOSE RANDOM 89 mg/dL 70-105 (BEAKER) (test code = 652) CALCIUM (BEAKER) 8.2 mg/dL 8.4-10.2 L (test code = 697) EGFR (BEAKER) (test 45 mL/min/1.73 ESTIMA TRAM GFR IS code = 1092) sq m NOT ACCURATE CREATININE CLEARANCE IN PREDICTING GLOMERULAR FILTRATION RATE . ESTIMATED GFR I S NOT APPLICABLE FOR DIALYSIS PATIEN TS. Propellant Charge Loader ID - PIAYA LProthrombin time/[id number] 06:50:00 Test Item Value Reference Interpretation Comments Range Protime (test code = 15.9 See_Comment H [Autom ated 5902-2) message] The system which generated this result transmitted reference range : 11.9 - 14.2 seconds. The reference range was not used to interpret this result as normal/abnormal . INR (test code = 1.3 See_Comment [Automated 6301-6) message] The system which generated this result transmitted reference range : <=5.9. The reference range was not used to interpret this result as normal/abnormal . MARYJANE (test code = Effective 12/30/2018: MARYJANE) PT Reference Range ChangeNew: 11.9-14.2 Previous: 11.7-14.7 RECOMMENDED COUMADIN/WARFARIN INR THERAPY RANGESSTANDARD DOSE: 2.0-3.0 Includes: PROPHYLAXIS for venous thrombosis, systemic embolization; TREATMENT for venous thrombosis and/or pulmonary embolus.HIGH RISK: Target INR is 2.5-3.5 for patients wiht mechanical heart valves. Lab Interpretation Abnormal (test code = 19327-3) [facility]HROM[facility]/[id number] 06:50:00 Test Item Value Reference Range Interpretation Comments PROTIME (BEAKER) (test code = 15.9 seconds 11.9-14.2 H 759) INR (BEAKER) (test code = 370) 1.3 <=5.9 Effective 12/30/2018: PT Reference Range ChangeNew: 11.9-14.2 Previous: 11.7- 14.7RECOMMENDED COUMADIN/WARFARIN INR THERAPY RANGESSTANDARD DOSE: 2.0-3.0 Includes: PROPHYLAXIS for venous thrombosis, systemic embolization; TREATMENT for venous thrombosis and/or pulmonary embolus.HIGH RISK: Target INR is2.5-3.5 for patients wiht mechanical heart valves.CBC (HEMOGRAM ONLY)2020-01-02 06:43:00 Test Item Value Reference Range Interpretation Comments WHITE BLOOD CELL COUNT (BEAKER) 5.1 K/ L 3.5-10.5 (test code = 775) RED BLOOD CELL COUNT (BEAKER) 2.60 M/ L 3.93-5.22 L (test code = 761) HEMOGLOBIN (BEAKER) (test code = 6.9 GM/DL 11.2-15.7 L 410) HEMATOCRIT (BEAKER) (test code = 21.9 % 34.1-44.9 L 411) MEAN CORPUSCULAR VOLUME (BEAKER) 84.2 fL 79.4-94.8 (test code = 753) MEAN CORPUSCULAR HEMOGLOBIN 26.5 pg 25.6-32.2 (BEAKER) (test code = 751) MEAN CORPUSCULAR HEMOGLOBIN CONC 31.5 GM/DL 32.2-35.5 L (BEAKER) (test code = 752) RED CELL DISTRIBUTION WIDTH 17.2 % 11.7-14.4 H (BEAKER) (test code = 412) PLATELET COUNT (BEAKER) (test 110 K/CU MM 150-450 L code = 756) MEAN PLATELET VOLUME (BEAKER) 9.6 fL 9.4-12.3 (test code = 754) NUCLEATED RED BLOOD CELLS 0 /100 WBC 0-0 (BEAKER) (test code = 413) TROPONIN [id number] 00:41:00 Test Item Value Reference Range Interpretation Comments TROPONIN I (BEAKER) (test code = 0.04 ng/mL 0.00-0.03 H 397) Troponin I (TnI) levels must be interpreted in the context of the presenting symptoms and the clinical findings. Elevated TnI levels indicate myocardial damage, but are not specific for ischemic heart disease. Elevated TnI levels are seen in patients with other cardiac conditions (including myocarditis and congestive heart failure), and slight TnI elevations occur in patients with other conditions, including sepsis, renal failure, acidosis, acute neurological disease, and persistent tachyarrhythmia.Propellant Charge Loader ID - PIAYA LBASIC METABOLIC [id number] 00:34:00 Test Item Value Reference Range Interpretation Comments SODIUM (BEAKER) 140 meq/L 136-145 (test code = 381) POTASSIUM (BEAKER) 4.0 meq/L 3.5-5.1 (test code = 379) CHLORIDE (BEAKER) 110 meq/L 98-107 H (test code = 382) CO2 (BEAKER) (test 22 meq/L 22-29 code = 355) BLOOD UREA NITROGEN 44 mg/dL 7-21 H (BEAKER) (test code = 354) CREATININE (BEAKER) 1.28 mg/dL 0.57-1.25 H (test code = 358) GLUCOSE RANDOM 96 mg/dL 70-105 (BEAKER) (test code = 652) CALCIUM (BEAKER) 8.6 mg/dL 8.4-10.2 (test code = 697) EGFR (BEAKER) (test 42 mL/min/1.73 ESTIMA TRAM GFR IS code = 1092) sq m NOT ACCURATE CREATININE CLEARANCE IN PREDICTING GLOMERULAR FILTRATION RATE . ESTIMATED GFR I S NOT APPLICABLE FOR DIALYSIS PATIEN TS. Propellant Charge Loader ID - PIAYA LCBC with platelet count + automated [id number] 00:05:00 Test Item Value Reference Range Interpretation Comments WBC (test code = 6690-2) 7.4 See_Comment [A utomated message] The system [employer] generated this result transmitted ref erence range: 3.5 - 10 .5 K/L. The refe rence range was not u sed to interpret this result as normal/abnor mal. RBC (test code = 789-8) 2.96 See_Comment L [Au tomated message] The system [employer] generated this result transmitted ref erence range: 3.93 - 5 .22 M/L. The refe rence range was not u sed to interpret this result as normal/abnor mal. MCHC (test code = 786-4) 31.2 See_Comment L [A utomated message] The system [employer] generated this result transmitted ref erence range: 32.2 - 3 5.5 GM/DL. The refe rence range was not u sed to interpret this result as normal/abnor mal. Hematocrit (test code = 25.0 % 34.1-44.9 L 4544-3) MCV (test code = 787-2) 84.5 fL 79.4-94.8 MCH (test code = 785-6) 26.4 pg 25.6-32.2 RDW (test code = 788-0) 17.1 % 11.7-14.4 H Platelets (test code = 135 See_Comment L [Aut omated message] 777-3) The system [employer] generated this result transmitted ref erence range: 150 - 45 0 K/CU MM. The referen ce range was not u sed to interpret this result as normal/abnor mal. MPV (test code = 9.9 fL 9.4-12.3 95571-5) nRBC (test code = 413) 0 See_Comment [Aut omated message] The system [employer] generated this result transmitted ref erence range: 0 - 0 /1 00 WBC. The refere nce range was not u sed to interpret this result as normal/abnor mal. % Neutros (test code = 60 % 429) % Lymphs (test code = 29 % 430) % Monos (test code = 9 % 431) % Eos (test code = 432) 1 % % Baso (test code = 437) 1 % # Neutros (test code = 4.48 See_Comment [Aut omated message] 670) The system [employer] generated this result transmitted ref erence range: 1.56 - 6 .13 K/L. The refe rence range was not u sed to interpret this result as normal/abnor mal. # Lymphs (test code = 2.14 See_Comment [Auto mated message] 414) The system [employer] generated this result transmitted ref erence range: 1.18 - 3 .74 K/L. The refe rence range was not u sed to interpret this result as normal/abnor mal. # Monos (test code = 0.66 See_Comment H [Autom ated message] 415) The system [employer] generated this result transmitted ref erence range: 0.24 - 0 .36 K/L. The refe rence range was not u sed to interpret this result as normal/abnor mal. # Eos (test code = 416) 0.06 See_Comment [Au tomated message] The system [employer] generated this result transmitted ref erence range: 0.04 - 0 .36 K/L. The refe rence range was not u sed to interpret this result as normal/abnor mal. # Baso (test code = 417) 0.05 See_Comment [A utomated message] The system [employer] generated this result transmitted ref erence range: 0.01 - 0 .08 K/L. The refe rence range was not u sed to interpret this result as normal/abnor mal. Immature 0 % 0-1 Granulocytes-Relative (test code = 2801) Lab Interpretation (test Abnormal code = 39978-8) [facility] W/PLT COUNT & AUTO [id number] 00:05:00 Test Item Value Reference Range Interpretation Comments WHITE BLOOD CELL COUNT (BEAKER) 7.4 K/ L 3.5-10.5 (test code = 775) RED BLOOD CELL COUNT (BEAKER) 2.96 M/ L 3.93-5.22 L (test code = 761) HEMOGLOBIN (BEAKER) (test code = 7.8 GM/DL 11.2-15.7 L 410) HEMATOCRIT (BEAKER) (test code = 25.0 % 34.1-44.9 L 411) MEAN CORPUSCULAR VOLUME (BEAKER) 84.5 fL 79.4-94.8 (test code = 753) MEAN CORPUSCULAR HEMOGLOBIN 26.4 pg 25.6-32.2 (BEAKER) (test code = 751) MEAN CORPUSCULAR HEMOGLOBIN CONC 31.2 GM/DL 32.2-35.5 L (BEAKER) (test code = 752) RED CELL DISTRIBUTION WIDTH 17.1 % 11.7-14.4 H (BEAKER) (test code = 412) PLATELET COUNT (BEAKER) (test 135 K/CU MM 150-450 L code = 756) MEAN PLATELET VOLUME (BEAKER) 9.9 fL 9.4-12.3 (test code = 754) NUCLEATED RED BLOOD CELLS 0 /100 WBC 0-0 (BEAKER) (test code = 413) NEUTROPHILS RELATIVE PERCENT 60 % (BEAKER) (test code = 429) LYMPHOCYTES RELATIVE PERCENT 29 % (BEAKER) (test code = 430) MONOCYTES RELATIVE PERCENT 9 % (BEAKER) (test code = 431) EOSINOPHILS RELATIVE PERCENT 1 % (BEAKER) (test code = 432) BASOPHILS RELATIVE PERCENT 1 % (BEAKER) (test code = 437) NEUTROPHILS ABSOLUTE COUNT 4.48 K/ L 1.56-6.13 (BEAKER) (test code = 670) LYMPHOCYTES ABSOLUTE COUNT 2.14 K/ L 1.18-3.74 (BEAKER) (test code = 414) MONOCYTES ABSOLUTE COUNT (BEAKER) 0.66 K/ L 0.24-0.36 H (test code = 415) EOSINOPHILS ABSOLUTE COUNT 0.06 K/ L 0.04-0.36 (BEAKER) (test code = 416) BASOPHILS ABSOLUTE COUNT (BEAKER) 0.05 K/ L 0.01-0.08 (test code = 417) IMMATURE GRANULOCYTES-RELATIVE 0 % 0-1 PERCENT (BEAKER) (test code = 1886)
[2020-10-05] MEDS ORDERED: PANTOPRAZOLE 40 MG INJ ONE (12:32)
[2020-10-05 12:54] LABS: Absolute Lymphocytes (CBC) 0.9 K/uL (0.7-4.9); Basophils % 0.5 % (0-1.3); Hematocrit 29.5 % (36.0-45.0); Lymphocytes % 15.5 % (15.3-44.8); MPV 9.1 fL (7.6-11.3); RBC Red Blood Cell Count 3.12 M/uL (3.86-4.86)
[2020-10-05] MEDS ORDERED: PANTOPRAZOLE INJ 80 MG in NA CHLORIDE 0.9% 250 ML IV SCH (13:00)
[2020-10-05] MEDS ORDERED: OCTREOTIDE 500 MCG in NA CHLORIDE 0.9% 500 ML IV SCH (13:00)
[2020-10-05 13:14] LABS: Albumin 2.5 g/dL (3.4-5.0); Bilirubin Direct 0.3 mg/dL (0-0.2); Bilirubin Total 1.2 mg/dL (0.2-1.0); Potassium 3.9 mmol/L (3.5-5.1); Protein, Total 5.8 g/dL (6.4-8.2)
[2020-10-05] MEDS: PANTOPRAZOLE INJ 80 MG in NA CHLORIDE 0.9% 250 ML IV SCH ×3 (15:00→23:32)
[2020-10-05] MEDS: OCTREOTIDE 500 MCG in NA CHLORIDE 0.9% 500 ML IV SCH (15:00)
--- NOTE | 2020-10-05 15:16 | ER ---
Nurse's Notes [facility] Name: Chanel Koenig Age: 65 yrs Sex: Female : 1955 Arrival Date: 10/05/2020 Time: 11:39 Bed 2 Private MD: Diagnosis: Gastrointestinal hemorrhage, unspecified Presentation: 10/05 11:39 Chief complaint: EMS states: Pt c/o dizziness and fatigue, black, tarry stool x 1 ph today, also reports N/V, states that she has had a GI bleed in the past, denies abdominal pain. Initially pt was hypotensive, IV established and fluids administered, BP improved to 120s systolic. Coronavirus screen: Client denies travel out of the [place] in the last 14 days. At this time, the client does not indicate any symptoms associated with coronavirus-19. Ebola Screen: No symptoms or risks identified at this time. Initial Sepsis Screen: Does the patient meet any 2 criteria? No. Patient's initial sepsis screen is negative. Does the patient have a suspected source of infection? No. Patient's initial sepsis screen is negative. Risk Assessment: Do you want to hurt yourself or someone else? Patient reports no desire to harm self or others. Onset of symptoms was October 05, 2020. 11:39 Method Of Arrival: EMS: [facility] ph 11:39 Acuity: DIEGO 3 ph Historical: - Allergies: 11:45 Codeine; ph - Home Meds: 11:45 Ambien Oral once daily [Active]; bisoprolol fumarate 10 mg Oral tab 1 tab once daily ph [Active]; bupropion HCl 300 mg Oral Tb24 1 tab once daily [Active]; desvenlafaxine Oral once daily [Active]; levothyroxine 50 mcg tab 1 tab once daily [Active]; Xanax Oral twice daily [Active]; - PMHx: 11:45 Hypothyroidism; Hypertension; Depression; ph - Immunization history:: Flu vaccine is not up to date. - Social history:: Smoking status: Patient denies any tobacco usage or history of. Screenin:45 Abuse screen: Denies threats or abuse. Denies injuries from another. Nutritional ph screening: No deficits noted. Tuberculosis screening: No symptoms or risk factors identified. Fall Risk None identified. Assessment: 11:46 General: Appears in no apparent distress. comfortable, Behavior is calm, cooperative, ph appropriate for age, drowsy, Denies fever. Pain: Denies pain. Neuro: Level of Consciousness is awake, alert, obeys commands, Oriented to person, place, time, situation, Reports dizziness, weakness. Cardiovascular: Capillary refill < 3 seconds in bilateral fingers Patient's skin is warm and dry. Respiratory: Airway is patent Respiratory effort is even, unlabored, Respiratory pattern is regular, symmetrical, Denies cough, shortness of breath. GI: Abdomen is non-distended, Reports bloody stool, nausea, vomiting, Patient currently denies abdominal pain. Derm: Skin is intact, Skin is pink, warm \T\ dry. Musculoskeletal: Circulation, motion, and sensation intact. Range of motion: intact in all extremities. 13:04 Reassessment: Patient appears in no apparent distress at this time. Patient and/or ph family updated on plan of care and expected duration. Pain level reassessed. Pt drowsy, oriented x 4, denies SOB or pain, VSS will continue to monitor. 13:57 Reassessment: Patient appears in no apparent distress at this time. No changes from previously documented assessment. Patient and/or family updated on plan of care and expected duration. Pain level reassessed. 15:08 Reassessment: Patient appears in no apparent distress at this time. Patient and/or ph family updated on plan of care and expected duration. Pain level reassessed. Pt resting w/ eyes closed, respirations even and unlabored, VSS. 17:18 Reassessment: Pt is resting at this time. Eyes closed. Respirations remain even and ss unlabored. Call light within reach. Awaiting room assignment for admission. 17:57 Reassessment: Patient appears in no apparent distress at this time. Patient and/or ph family updated on plan of care and expected duration. Pain level reassessed. Report called to Diana CROCKETT on second floor. Vital Signs: 11:39 BP 120 / 53; Pulse 77; Resp 18; Temp 99.0(O); Pulse Ox 100% on R/A; Weight 106.59 kg; ph Height 5 ft. 7 in. (170.18 cm); Pain 0/10; 12:28 BP 120 / 53; Pulse 80; Resp 18; Pulse Ox 98% on R/A; ph 13:05 BP 103 / 60; Pulse 78; Resp 20; Pulse Ox 96% on R/A; ph 13:58 BP 112 / 62; Pulse 77; Resp 18; Pulse Ox 98% on R/A; ph 15:08 BP 122 / 83; Pulse 71; Resp 18; Pulse Ox 98% on R/A; ph 16:30 BP 116 / 67; Pulse 77; Resp 18; Pulse Ox 98% on R/A; ph 17:57 BP 104 / 62; Pulse 81; Resp 18; Pulse Ox 100% on R/A; ph 11:39 Body Mass Index 36.81 (106.59 kg, 170.18 cm) ph Za Coma Score: 12:08 Eye Response: spontaneous(4). Verbal Response: oriented(5). Motor Response: obeys jr8 commands(6). Total: 15. ED Course: 11:39 Patient arrived in ED. ph 11:43 Thong Sandy PA is PHCP. jr8 11:43 John Oates MD is Attending Physician. jr8 11:43 Triage completed. ph 11:45 Arm band placed on Patient placed in an exam room, on a stretcher, on belt maker, ph on pulse oximetry. 11:46 Patient has correct armband on for positive identification. Bed in low position. Call ph light in reach. Side rails up X 1. rescue boat operator on. Pulse ox on. NIBP on. Door closed. Noise minimized. Warm blanket given. 12:15 Marita Chin, RN is Primary Nurse. ph 12:25 Inserted saline lock: 22 gauge in right forearm, using aseptic technique. ds4 12:30 Inserted saline lock: 22 gauge in left wrist, using aseptic technique. Blood collected. ds4 12:39 TS Sent. ds4 15:15 Jayro Vale MD is Hospitalizing Provider. jr8 18:00 No provider procedures requiring assistance completed. Patient admitted, IV remains in ph place. Administered Medications: Discontinued: Octreotide Infusion (50 mcg/hr) - (Octreotide 500 mcg, NS 0.9% 500 ml) IV at 50 ml/hr continuous 12:19 Drug: ProTONIX 40 mg Route: IVP; Site: right forearm; ss 14:28 Drug: ProTONIX 8 mg/hr Route: IV; Rate: 25 ml/hr; Site: right antecubital; ph 14:28 Drug: Octreotide Infusion (50 mcg/hr) - (Octreotide 500 mcg, NS 0.9% 500 ml) Route: IV; ph Rate: 50 ml/hr; Site: right antecubital; Outcome: 15:16 Decision to Hospitalize by Provider. bon 18:09 Patient left the ED. ph 18:09 Admitted to Med/surg accompanied by tech, via stretcher. ph 18:09 Condition: good 18:09 Instructed on the need for admit. Signatures: Maria Eugenia Ledesma, RN RN Thong Sandy PA PA jr8 Dirk Garcia ds4 Marita Chin RN RN
--- NOTE | 2020-10-05 15:17 | EDPHYS ---
Physician Documentation [facility] Name: Chanel Koenig Age: 65 yrs Sex: Female : 1955 Arrival Date: 10/05/2020 Time: 11:39 Bed 2 Private MD: ED Physician John Oates HPI: 10/05 12:05 This 65 yrs old Female presents to ER via EMS with complaints of Blood jr8 Pressure Problem, Bloody Stools. 12:05 Onset: The symptoms/episode began/occurred suddenly, today. Associated signs and jr8 symptoms: Pertinent positives: HoTN. Pt reports going to restroom this morning and found black tarry stool pooling. She denies N/V or bloody emesis. She reports having hx of gastric maycol and ulcers. She denies taking blood thinners. . Historical: - Allergies: 11:45 Codeine; ph - Home Meds: 11:45 Ambien Oral once daily [Active]; bisoprolol fumarate 10 mg Oral tab 1 tab once daily ph [Active]; bupropion HCl 300 mg Oral Tb24 1 tab once daily [Active]; desvenlafaxine Oral once daily [Active]; levothyroxine 50 mcg tab 1 tab once daily [Active]; Xanax Oral twice daily [Active]; - PMHx: 11:45 Hypothyroidism; Hypertension; Depression; ph - Immunization history:: Flu vaccine is not up to date. - Social history:: Smoking status: Patient denies any tobacco usage or history of. ROS: 12:07 Cardiovascular: Negative for chest pain, palpitations, and edema, Respiratory: Negative jr8 for shortness of breath, cough, wheezing, and pleuritic chest pain, Back: Negative for injury and pain, MS/Extremity: Negative for injury and deformity, Skin: Negative for injury, rash, and discoloration, Neuro: Negative for headache, weakness, numbness, tingling, and seizure. 12:07 Abdomen/GI: Positive for black/tarry stool. Exam: 12:08 Chest/axilla: Normal chest wall appearance and motion. Nontender with no deformity. jr8 No lesions are appreciated. Cardiovascular: Regular rate and rhythm with a normal S1 and S2. No gallops, murmurs, or rubs. Normal PMI, no JVD. No pulse deficits. Respiratory: Lungs have equal breath sounds bilaterally, clear to auscultation and percussion. No rales, rhonchi or wheezes noted. No increased work of breathing, no retractions or nasal flaring. Skin: Warm, dry with normal turgor. Normal color with no rashes, no lesions, and no evidence of cellulitis. MS/ Extremity: Pulses equal, no cyanosis. Neurovascular intact. Full, normal range of motion. 12:08 Abdomen/GI: Inspection: obese Bowel sounds: normal, in all quadrants, Palpation: mild abdominal tenderness, in all quadrants, Rectal exam: Stool: guaiac positive, black, soft, the exam is chaperoned by an technical research scientist. Vital Signs: 11:39 BP 120 / 53; Pulse 77; Resp 18; Temp 99.0(O); Pulse Ox 100% on R/A; Weight 106.59 kg; ph Height 5 ft. 7 in. (170.18 cm); Pain 0/10; 12:28 BP 120 / 53; Pulse 80; Resp 18; Pulse Ox 98% on R/A; ph 13:05 BP 103 / 60; Pulse 78; Resp 20; Pulse Ox 96% on R/A; ph 13:58 BP 112 / 62; Pulse 77; Resp 18; Pulse Ox 98% on R/A; ph 15:08 BP 122 / 83; Pulse 71; Resp 18; Pulse Ox 98% on R/A; ph 16:30 BP 116 / 67; Pulse 77; Resp 18; Pulse Ox 98% on R/A; ph 17:57 BP 104 / 62; Pulse 81; Resp 18; Pulse Ox 100% on R/A; ph 11:39 Body Mass Index 36.81 (106.59 kg, 170.18 cm) ph Za Coma Score: 12:08 Eye Response: spontaneous(4). Verbal Response: oriented(5). Motor Response: obeys jr8 commands(6). Total: 15. MDM: 11:43 Patient medically screened. jr8 12:09 Data reviewed: vital signs, nurses notes, lab test result(s), radiologic studies. Data jr8 interpreted: classroom monitor: rate is 77 beats/min, Pulse oximetry: on room air is 100 %. Interpretation: normal. 14:38 Counseling: I had a detailed discussion with the patient and/or guardian regarding: the jr8 historical points, exam findings, and any diagnostic results supporting the discharge/admit diagnosis, lab results, the need for further work-up and treatment in the hospital. 15:15 ED course: Discussed case with Dr. Hubbard who will come and consult and see patient . 8 10/05 11:59 Order name: Basic Metabolic Panel; Complete Time: 13:14 8 10/05 11:59 Order name: CBC with Diff; Complete Time: 13:00 8 10/05 11:59 Order name: Hepatic Function; Complete Time: 13:14 8 10/05 11:59 Order name: Lipase; Complete Time: 13:14 8 10/05 11:59 Order name: TS; Complete Time: 14:35 [facility] 10/05 15:36 Order name: COVID-19 : Document "Date of Symptom Onset" if Symptomatic. 10/05 11:59 Order name: IV Saline Lock; Complete Time: 12:28 [facility] 10/05 11:59 Order name: Labs collected and sent; Complete Time: 12:28 [facility] 10/05 15:22 Order name: CONS Physician Consult [facility] 10/05 16:11 Order name: CORONAVIRUS [facility] 10/05 17:03 Order name: SARS-COV-2 RT PCR; Complete Time: 17:20 EDMS Administered Medications: Discontinued: Octreotide Infusion (50 mcg/hr) - (Octreotide 500 mcg, NS 0.9% 500 ml) IV at 50 ml/hr continuous 12:19 Drug: ProTONIX 40 mg Route: IVP; Site: right forearm; ss 14:28 Drug: ProTONIX 8 mg/hr Route: IV; Rate: 25 ml/hr; Site: right antecubital; ph 14:28 Drug: Octreotide Infusion (50 mcg/hr) - (Octreotide 500 mcg, NS 0.9% 500 ml) Route: IV; ph Rate: 50 ml/hr; Site: right antecubital; Disposition: 21:55 Co-signature as Attending Physician, John Oates MD I agree with the assessment and kdr plan of care. Disposition: 10/05/20 15:16 Hospitalization ordered by Jayro Vale for Inpatient Admission. Preliminary diagnosis is Gastrointestinal hemorrhage, unspecified. - Bed requested for Telemetry/MedSurg (Inpatient). - Status is Inpatient Admission. ph - Condition is Fair. - Problem is new. - Symptoms have improved. Signatures: Dispatcher [employer] EDMS John Oates MD MD kdr Martinez, Eric em1 Maria Eugenia Ledesma, KEIRA RN Thong Sandy PA PA jr8 Marita Chin RN RN ph Corrections: (The following items were deleted from the chart) 17:42 15:16 Hospitalization Ordered by Jayro Vale MD for Inpatient Admission. Preliminary em1 diagnosis is Gastrointestinal hemorrhage, unspecified. Bed requested for Telemetry/MedSurg (Inpatient). Status is Inpatient Admission. Condition is Fair. Problem is new. Symptoms have improved. jr8 18:09 17:42 10/05/2020 15:16 Hospitalization Ordered by Jayro Vale MD for Inpatient ph Admission. Preliminary diagnosis is Gastrointestinal hemorrhage, unspecified. Bed requested for Telemetry/MedSurg (Inpatient). Status is Inpatient Admission. Condition is Fair. Problem is new. Symptoms have improved. em1
[2020-10-05] MEDS ORDERED: ONDANSETRON 4 MG/2 ML VIAL IV PRN (19:15)
[2020-10-05 19:19] VITALS: BMI 36.8
[2020-10-05] MEDS: D5 0.45 NS 1,000 ML IV SCH (20:40)
--- NOTE | 2020-10-05 21:01 | P.HP ---
Certification for Inpatient Patient admitted to: Inpatient With expected LOS: >2 Midnights Practitioner: I am a practitioner with admitting privileges, knowledge of patient current condition, hospital course, and medical plan of care. Services: Services provided to patient in accordance with Admission requirements found in Title 42 Section 412.3 of the Code of Federal Regulations Patient History Date of Service: 10/05/20 Reason for admission: GI BLEED. History of Present Illness: MICHAEL HAS HAD GI BLEED BEFORE. SHE SAYS SHE TAKES ASPIRIN OFF AND ON. SHE IS ASKED NOT TO TAKE NSAIDS. SHE COMES BACK WITH GI BLEED, HEMATAMESIS, MELENA. SHE IS WEAK. DR. HERNANDEZ HAS PROMISED TO SEE HER. Allergies codeine [Codeine] Adverse Reaction (Intermediate, Verified 06/23/12 04:22) Nausea/Vomiting Home Medications: ALPRAZolam [Xanax*] 1 tab PO Q6H 10/05/20 Desvenlafaxine Succinate [Desvenlafaxine Succinate ER] 100 mg PO DAILY 10/05/20 Famotidine [Pepcid*] 20 mg PO DAILY 10/05/20 Ferrous Sulfate [Ferrous Sulfate*] 1 tab PO DAILY 10/05/20 Levothyroxine [Synthroid*] 1 tab PO DAILY 10/05/20 bisoproloL fumarate [Zebeta*] 10 mg PO DAILY 10/05/20 buPROPion HCL [Bupropion Xl] 300 mg PO DAILY 10/05/20 hydroCHLOROthiazide [Hydrochlorothiazide*] 25 mg PO DAILY 10/05/20 - Past Medical/Surgical History Has patient received pneumonia vaccine in the past: No Diabetic: No -: HTN -: hypothyroidism -: anxiety -: depression -: DVT bilateral legs -: stomach stapling -: hysterectomy -: veins in legs repaired -: polyps removed from colon -: Bilateral feet surgery - Family History Father -: Hypertension, Lung disease Mother -: Heart disease, Hypertension, Stroke, Seizures - Social History Alcohol use: No CD- Drugs: No Caffeine use: Yes Review of Systems 10-point ROS is otherwise unremarkable General: Weakness, Malaise Gastrointestinal: Melena, As per HPI Physical Examination - Vital Signs Temperature: 99.0 F Blood Pressure: 104/62 Pulse: 81 Respirations: 18 - Physical Exam General: Mild distress HEENT: Atraumatic, PERRLA, Mucous membr. moist/pink, EOMI, Sclerae nonicteric Neck: Supple, 2+ carotid pulse no bruit, No LAD, Without JVD or thyroid abnormality Respiratory: Clear to auscultation bilaterally, Normal air movement Cardiovascular: Regular rate/rhythm, Normal S1 S2 Gastrointestinal: Normal bowel sounds, No tenderness Musculoskeletal: No tenderness Integumentary: No rashes Neurological: Normal gait, Normal speech, Normal strength at 5/5 x4 extr, Normal tone, Normal affect Lymphatics: No axilla or inguinal lymphadenopathy - Studies Laboratory Data (last 24 hrs) 10/05/20 12:30: WBC 6.00, Hgb 9.6 L, Hct 29.5 L, Plt Count 127 L 10/05/20 12:30: Sodium 147 H, Potassium 3.9, BUN 61 H, Creatinine 1.20, Glucose 107 H, Total Bilirubin 1.2 H, AST 29, ALT 22, Alkaline Phosphatase 94, Lipase 62 L Assessment and Plan - Problems (Diagnosis) (1) GI bleed Current Visit: No Status: Acute Plan: PROTONIX IV SANDOSTATIN DR. HERNANDEZ CONSULTED AVOID NSAIDS. PROGNOSIS GUARDED. - Advance Directives Does patient have a Living Will: No Does patient have a Durable POA for Healthcare: No
[2020-10-05] MEDS: ALPRAZOLAM 0.25 MG TABLET PO SCH (21:54)
[2020-10-06] MEDS: OCTREOTIDE 500 MCG in NA CHLORIDE 0.9% 500 ML IV SCH ×2 (00:32→10:29)
[2020-10-06] MEDS: ALPRAZOLAM 0.25 MG TABLET PO SCH ×4 (03:00→21:00)
[2020-10-06 05:28] LABS: Absolute Lymphocytes (CBC) 1.1 K/uL (0.7-4.9); Basophils % 0.5 % (0-1.3); Hematocrit 26.7 % (36.0-45.0); Lymphocytes % 21.2 % (15.3-44.8); MPV 8.7 fL (7.6-11.3); RBC Red Blood Cell Count 2.82 M/uL (3.86-4.86)
[2020-10-06 05:45] LABS: Potassium 3.7 mmol/L (3.5-5.1)
[2020-10-06] MEDS: LEVOTHYROXINE SOD 0.05 MG TABLET PO SCH (07:30)
[2020-10-06] MEDS ORDERED: INFLUENZA VACCINE (for 3y+) 0.5 ML DOSE IMVAC ONE (08:00)
[2020-10-06] MEDS ORDERED: FAMOTIDINE 20 MG TAB PO SCH (09:00)
[2020-10-06] MEDS: DESVENLAFAXINE SUCCINATE 50 MG ER TAB PO SCH (09:00)
[2020-10-06] MEDS: D5 0.45 NS 1,000 ML IV SCH ×2 (10:28→17:28)
[2020-10-06] MEDS: PANTOPRAZOLE INJ 80 MG in NA CHLORIDE 0.9% 250 ML IV SCH ×2 (10:29→23:45)
--- NOTE | 2020-10-06 13:55 | P.PN ---
Subjective Date of Service: 10/06/20 Chief Complaint: GI BLEED. Subjective: No C/O voiced DELEE HAS HAD GI BLEED BEFORE. DR. HERNANDEZ ON CASE. I CALLED HIM TWICE THIS AM AND WAITING FOR REPLY. SHE MAY GO HOME IN AM IF STABLE. Review of Systems 10-point ROS is otherwise unremarkable General: Weakness Physical Examination - Vital Signs Temperature: 97.2 F Blood Pressure: 100/55 Pulse: 73 Respirations: 16 Pulse Ox (%): 98 - Physical Exam General: Alert, Mild distress HEENT: Atraumatic, PERRLA, EOMI Neck: Supple, JVD not distended Respiratory: Clear to auscultation bilaterally, Normal air movement Cardiovascular: Regular rate/rhythm, Normal S1 S2 Gastrointestinal: Normal bowel sounds, No tenderness Musculoskeletal: No tenderness Integumentary: No rashes Neurological: Normal speech, Normal tone, Normal affect Lymphatics: No axilla or inguinal lymphadenopathy - Studies Medications List Reviewed: Yes Assessment And Plan - Current Problems (Diagnosis) (1) GI bleed Current Visit: No Status: Acute Plan: PROTONIX IV SANDOSTATIN DR. HERNANDEZ CONSULTED AVOID NSAIDS. PROGNOSIS GUARDED. HG IN AM DR HERNANDEZ ON CASE.
[2020-10-06] MEDS ORDERED: NA CHLORIDE 0.9% 500 ML ONE (14:13)
[2020-10-06] MEDS ORDERED: propofoL 200 MG/20 ML VIAL IV ONE (15:19)
[2020-10-06] MEDS ORDERED: LIDOCAINE 1% MPF 5 ML VIAL ONE (15:20)
[2020-10-06] MEDS ORDERED: EPINEPHRINE/PF 1 MG/ML AMP ONE (15:36)
--- NOTE | 2020-10-06 15:56 | ENDO RPT ---
[address], [address] EGD PROCEDURE REPORT EXAM DATE: 10/06/2020 PATIENT NAME: Chanel Koenig MR#: [id number] BIRTHDATE: 1955 ATTENDING: Carlitos Rocha Dr STATUS: inpatient - [facility] BEHAVIOR THERAPIST: Nicolette Levine RN and Bernarda Cerrato INDICATIONS: The patient is a 65 yr old Female here for an EGD due to melenic bleeding, anemia, and hematemesis PROCEDURE PERFORMED: EGD with biopsy MEDICATIONS: Per Anesthesia. TOPICAL ANESTHETIC: none CONSENT: The patient understands the risks and benefits of the procedure and understands that these risks include, but are not limited to: sedation, allergic reaction, infection, perforation and/or bleeding. Alternative means of evaluation and treatment include, among others: physical exam, x-rays, and/or surgical intervention. The patient elects to proceed with this endoscopic procedure. DESCRIPTION OF PROCEDURE: During intra-op preparation period all mechanical medical equipment was checked for proper function. Hand hygiene and appropriate measures for infection prevention was taken. Procedure, possible complications, and alternatives including but not limited to the possibility of bleeding, perforation, tear, infection, sepsis, need for surgery, need for blood transfusion, and anesthesia related complications were explained to the patient. After the risks, benefits and alternatives of the procedure were thoroughly explained, Informed consent was verified, confirmed and timeout was successfully executed by the treatment team. The patient was placed in the left lateral position. The patient was anesthetized with topical anesthesia. Through the anesthetized oropharyngeal area, the scope was passed without any difficulty. The EG-[id number] ([id number]) and [id number] ([id number]) endoscope was introduced through the mouth and advanced to the third portion of the duodenum. Retroflexed views revealed a small hiatal hernia. The gastroscope was then slowly withdrawn and removed. Gastric stapling was found in the proximal body of the stomach. Mild gastritis was found in the body and the antrum of the stomach. Multiple biopsies were obtained and sent to pathology. Multiple (3) erosions were found in the antrum. ADVERSE EVENTS: There were no complications. IMPRESSIONS: 1. Gastric stapling changes in the body of the stomach 2. Mild gastritis in the body and the antrum of the stomach, s/p biopsies 3. Multiple (3) erosions in the antrum RECOMMENDATIONS: 1. await biopsy results 2. acid suppression therapy 3. colonoscopy REPEAT EXAM: Carlitos Rocha Dr eSigned: Carlitos Rocha Dr 10/06/2020 3:56 PM cc: Jayro Vale CPT CODES: ICD9 CODES: PATIENT NAME: Chanel Koenig MR#: [id number]
[2020-10-06] MEDS ORDERED: MAGNESIUM CITRATE 300 ML BOT PO SCH (17:00)
[2020-10-06] MEDS ORDERED: GOLYTELY 4000 ML PO SCH (17:00)
[2020-10-06] MEDS: BISOPROLOL 5 MG TABLET PO SCH (17:22)
[2020-10-06] MEDS: BUPROPION HCL XL 150 MG TAB PO SCH (17:22)
[2020-10-06] MEDS: METOCLOPRAMIDE 10 MG/2mL INJ IV SCH ×2 (17:28→23:00)
--- NOTE | 2020-10-06 20:16 | CON ---
Date of Consultation: 10/06/2020 Reason For Consultation: Melena and anemia, hemoglobin 8.7 with history of peptic ulcer disease and bleeding in the past. History Of Present Illness: The patient presented to the hospital with GI bleed, melena for the past 2 days, hemoglobin noted to be down to 8.7. By chart review, she also had hematemesis. She has a history of peptic ulcer disease at the stomach stapling line in January 2020 at [facility] and was treated with PPI therapy at that time. She has been taking aspirin. She says she took a few aspirin before GI bleeding began due to her continued low back pain. Past Medical History: Significant for peptic ulcer disease with the gastric stapling line, anastomosis in January 2020, hypertension, hypothyroidism, generalized anxiety disorder, depression, DVT bilaterally, hysterectomy, vein surgery in both bilateral lower extremities, history of colon polyps, and bilateral foot surgery. Medications: At home include Xanax, desvenlafaxine, Pepcid, ferrous sulfate, Synthroid, Zebeta, bupropion, hydrochlorothiazide. Allergies: CODEINE. Social History: She is , 2 children. No tobacco. No alcohol. Family History: Father of strokes and seizures, hypertension. Mother of dementia, coronary artery disease, and hypertension. Review of Systems: The patient has melena, weakness, anemia. She has also mention of hematemesis, depression, and anxiety, but no fevers, chills, night sweats, nausea, vomiting, hematochezia, hemoptysis, hematuria, dysuria, polyuria, polydipsia, chest pain, shortness of breath, seizure, syncope, lower extremity edema, muscle aches, joint aches, backaches. She does have some lower back pain. Physical Examination: Vital Signs: The patient is 5 foot 7 inches, 235 pounds. BMI of 36.8 kg/m2. Temperature 98.1 degrees Fahrenheit, pulse 91, respirations 16, blood pressure 102/59, O2 saturation 97%. HEENT: Normocephalic, atraumatic. Anicteric. Pupils equal, round, and reactive to light. Extraocular movements intact. Oropharynx is clear. Neck: Supple. No masses. Respirations: Clear to auscultation bilaterally. Cardiac: Regular rate and rhythm. No gallops or rubs. Gastrointestinal: Positive bowel sounds. Soft, nontender, nondistended. No hepatosplenomegaly. She does state about a week ago she had 2 days of right upper quadrant pain off and on. Extremities: No clubbing, cyanosis, or edema. 2+ pulses. Neurologic: Alert and oriented x3. Grossly nonfocal. 5/5 motor sensation intact to light touch. Laboratory Data: The patient has a white count of 5.0, hemoglobin of 8.7, hematocrit 26.7, MCV of 95, platelet count of 123, polys of 69%, lymphocytes 21%, monocytes 8%, eosinophils 1%. The patient has a sodium 145, potassium 3.7, chloride 112, bicarb 26, BUN of 52, creatinine of 1.14, glucose 108, calcium 8.3, total bilirubin 1.2, direct bilirubin 0.3, AST of 29, ALT 22, alkaline phosphatase 94, total protein 5.8, albumin 2.5, lipase 62. COVID-19 testing was negative. Impression: 1. Melena x2 days with anemia, hemoglobin down to 8.7 with hematemesis by chart review. She has a history of peptic ulcer disease at the gastric staple line on prior EGD in January 2020 at [facility]. She was treated with PPI therapy at that time she reports and she took a few aspirin day before GI bleed began for her lower back pain. 2. History of peptic ulcer disease with gastric staple line, anastomosis injury in 2019 at [facility]. 3. Hypertension, hypothyroidism, generalized anxiety disorder, depression, deep vein thrombosis bilaterally, hysterectomy, vein surgery, bilateral feet surgery, and history of colon polyps resection. Recommendations: 1. We will proceed with EGD. 2. PPI therapy. 3. IV fluids. 4. Serial H and H, and then transfuse p.r.n. KALIN/TANIA Voice ID: [id number] Report ID: [id number] [facility]
[2020-10-07] MEDS: OCTREOTIDE 500 MCG in NA CHLORIDE 0.9% 500 ML IV SCH ×2 (01:47→07:00)
[2020-10-07] MEDS: ALPRAZOLAM 0.25 MG TABLET PO SCH ×4 (03:00→22:36)
[2020-10-07] MEDS: METOCLOPRAMIDE 10 MG/2mL INJ IV SCH (04:05)
[2020-10-07] MEDS: PANTOPRAZOLE INJ 80 MG in NA CHLORIDE 0.9% 250 ML IV SCH ×2 (07:00→11:00)
[2020-10-07] MEDS: LEVOTHYROXINE SOD 0.05 MG TABLET PO SCH (07:30)
[2020-10-07] MEDS: BUPROPION HCL XL 150 MG TAB PO SCH (09:00)
[2020-10-07] MEDS: BISOPROLOL 5 MG TABLET PO SCH (09:00)
[2020-10-07] MEDS: DESVENLAFAXINE SUCCINATE 50 MG ER TAB PO SCH (09:00)
[2020-10-07] MEDS: D5 0.45 NS 1,000 ML IV SCH (11:15)
[2020-10-07] MEDS ORDERED: Ringers Lactate 1,000 ML IV ONE (12:55)
[2020-10-07] MEDS ORDERED: propofoL 200 MG/20 ML VIAL IV ONE (13:09)
--- NOTE | 2020-10-07 14:45 | ENDO RPT ---
[address], [address] COLONOSCOPY PROCEDURE REPORT EXAM DATE: 10/07/2020 PATIENT NAME: Chanel Koenig MR #: [id number] BIRTHDATE: 1955 ATTENDING: Carlitos Rocha Dr STATUS: inpatient [place] SOCIOLOGIST: Ama Caruso RN and Bernarda Cerrato INDICATIONS: The patient is a 65 yr old Female here for a colonoscopy due to anemia and melenic bleeding PROCEDURE PERFORMED: Colonoscopy with snare polypectomy MEDICATIONS: Per Anesthesia. ESTIMATED BLOOD LOSS: None CONSENT: The patient understands the risks and benefits of the procedure and understands that these risks include, but are not limited to: sedation, allergic reaction, infection, perforation and/or bleeding. Alternative means of evaluation and treatment include, among others: physical exam, x-rays, and/or surgical intervention. The patient elects to proceed with this endoscopic procedure. DESCRIPTION OF PROCEDURE: During intra-op preparation period all mechanical medical equipment was checked for proper function. Hand hygiene and appropriate measures for infection prevention was taken. Procedure, possible complications, alternatives including, but not limited to possibility of bleeding, perforation, tear, infection, sepsis, need for surgery, need for blood transfusion, were explained to the patient. After the risks, benefits and alternatives of the procedure were thoroughly explained, Informed consent was verified, confirmed and timeout was successfully executed by the treatment team. The patient was placed in the left lateral position. A digital rectal exam was performed and revealed external hemorrhoids. After appropriate level of anesthesia, the scope was passed. The EC-[id number] ([id number]) endoscope was introduced through the anus and advanced to the cecum, which was identified by both the appendix and ileocecal valve. The quality of the prep was good. The instrument was then slowly withdrawn as the colon was fully examined. Scope withdrawal time was 8 minutes. was performed with a cold snare. A smooth pedunculated polyp measuring 10 mm in size was found in the rectum. A polypectomy was performed using snare cautery. 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 There was mild diverticulosis noted in the sigmoid colon with associated angulation. No bleeding was noted from the diverticulosis. Small internal and external hemorrhoids were found. Retroflexed views revealed small hemorrhoids. The scope was then completely withdrawn from the patient and the procedure terminated. ADVERSE EVENTS: There were no complications. performed with a cold snare 2. 10 mm pedunculated polyp in the rectum; polypectomy was performed using snare cautery 3. Possible 5 mm non-bleeding arteriovenous malformation in the ascending colon 4. Mild diverticulosis in the sigmoid colon 5. Small internal and external hemorrhoids 6. Intubation to cecum RECOMMENDATIONS: 1. await biopsy results 2. avoid NSAIDS for 2 weeks 3. fiber rich diet RECALL: Return in 1 year(s) for Colonoscopy. Carlitos Rocha Dr eSigned: Carlitos Rocha Dr 10/07/2020 2:44 PM cc: Jayro Vale CPT CODES: ICD9 CODES: 1. 455.5 External hemorrhoids with other complication 2. 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 211.3 Benign neoplasm of colon 4. 569.0 Anal and rectal polyp PATIENT NAME: Chanel Koenig MR#: [id number]
[2020-10-07 14:51] VITALS: O2SAT 98
[2020-10-07 16:50] LABS: Absolute Lymphocytes (CBC) 0.9 K/uL (0.7-4.9); Basophils % 0.6 % (0-1.3); Hematocrit 23.4 % (36.0-45.0); Lymphocytes % 28.1 % (15.3-44.8); MPV 9.2 fL (7.6-11.3); RBC Red Blood Cell Count 2.46 M/uL (3.86-4.86)
--- NOTE | 2020-10-07 17:13 | RAD REPORT ---
EXAM DESCRIPTION: RAD - Abdomen Single View - 10/07/2020 4:49 pm CLINICAL HISTORY: occult GI bleed , abdominal pain COMPARISON: <Comparisons> FINDINGS: Patient was initially scheduled for small bowel examination. However, the patient was unab le to tolerate oral intake. Images show multiple air filled nondilated small bowel loops. Patient had colonoscopy performed earli er which could account for the small bowel air pattern. Gastric staple lines are present. No gastric distention or dilatation. No colon dilatation. No free air or pneumatosis. No suspicious calcificatio ns. No significant bony findings IMPRESSION: No bowel obstruction, free air or pneumatosis. Air-filled small bowel loops are present which can occur normally following colonoscopy.
[2020-10-07] MEDS ORDERED: NA CHLORIDE 0.9% 250 ML ONE (22:39)
[2020-10-08] MEDS: OCTREOTIDE 500 MCG in NA CHLORIDE 0.9% 500 ML IV SCH (03:00)
[2020-10-08] MEDS: PANTOPRAZOLE INJ 80 MG in NA CHLORIDE 0.9% 250 ML IV SCH (03:40)
[2020-10-08] MEDS ORDERED: NA CHLORIDE 0.9% 250 ML ONE (04:14)
[2020-10-08] MEDS: LEVOTHYROXINE SOD 0.05 MG TABLET PO SCH (07:30)
[2020-10-08] MEDS: BISOPROLOL 5 MG TABLET PO SCH (09:32)
[2020-10-08] MEDS: DESVENLAFAXINE SUCCINATE 50 MG ER TAB PO SCH (09:37)
[2020-10-08] MEDS: ALPRAZOLAM 0.25 MG TABLET PO SCH (09:42)
[2020-10-08] MEDS: BUPROPION HCL XL 150 MG TAB PO SCH (09:43)
[2020-10-08 10:39] LABS: Absolute Lymphocytes (CBC) 0.8 K/uL (0.7-4.9); Basophils % 0.9 % (0-1.3); Hematocrit 31.1 % (36.0-45.0); Lymphocytes % 13.8 % (15.3-44.8); MPV 8.9 fL (7.6-11.3); RBC Red Blood Cell Count 3.26 M/uL (3.86-4.86)
[2020-10-08 10:52] LABS: Potassium 3.4 mmol/L (3.5-5.1)
[2020-10-08 12:33] VITALS: BP 122/62; TEMP 98
--- NOTE | 2020-10-11 20:40 | P.DS ---
Admission Date: 10/05/20 Discharge Date: 10/11/20 Disposition: ROUTINE DISCHARGE Discharge Condition: FAIR Reason for Admission: GI BLEED. - Problems (1) GI bleed Status: Acute Brief History of Present Illness: MICHAEL HAS HAD GI BLEED BEFORE. SHE SAYS SHE TAKES ASPIRIN OFF AND ON. SHE IS ASKED NOT TO TAKE NSAIDS. SHE COMES BACK WITH GI BLEED, HEMATAMESIS, MELENA. SHE IS WEAK. DR. HERNANDEZ HAS PROMISED TO SEE HER. Hospital Course: MICHAEL HAS DONE WELL. SHE GOT TWO UNITS OF PRBCS FOR ANEMIA DOWN TO 7.6 GM. SHE HAD EGD AND CRC AND FOUND NO ACUTE BLEEDING. SHE IS DISCHARGED IN STABLE CONDITION WITH FU WITH DR. HERNANDEZ. Vital Signs/Physical Exam: Temp Pulse Resp BP Pulse Ox 98.0 F 59 17 122/62 96 10/08/20 12:00 10/08/20 12:00 10/08/20 12:00 10/08/20 12:00 10/08/20 12:00 Laboratory Data at Discharge: WBC 5.90 K/uL (4.3-10.9) D 10/08/20 10:29 Hgb 10.2 g/dL (12.0-15.0) L D 10/08/20 10:29 Hct 31.1 % (36.0-45.0) L D 10/08/20 10:29 Plt Count 109 K/uL (152-406) L 10/08/20 10:29 Sodium 145 mmol/L (136-145) 10/08/20 10:29 Potassium 3.4 mmol/L (3.5-5.1) L 10/08/20 10:29 BUN 17 mg/dL (7-18) D 10/08/20 10:29 Creatinine 1.10 mg/dL (0.55-1.3) 10/08/20 10:29 Glucose 162 mg/dL (74-106) H 10/08/20 10:29 Total Bilirubin 1.2 mg/dL (0.2-1.0) H 10/05/20 12:30 AST 29 U/L (15-37) 10/05/20 12:30 ALT 22 U/L (12-78) 10/05/20 12:30 Alkaline Phosphatase 94 U/L (45-117) 10/05/20 12:30 Lipase 62 U/L (73-393) L 10/05/20 12:30 Home Medications: ALPRAZolam [Xanax*] 1 tab PO Q6H 10/05/20 Desvenlafaxine Succinate [Desvenlafaxine Succinate ER] 100 mg PO DAILY 10/05/20 Famotidine [Pepcid*] 20 mg PO DAILY 10/05/20 Ferrous Sulfate [Ferrous Sulfate*] 1 tab PO DAILY 10/05/20 Levothyroxine [Synthroid*] 1 tab PO DAILY 10/05/20 bisoproloL fumarate [Zebeta*] 10 mg PO DAILY 10/05/20 buPROPion HCL [Bupropion Xl] 300 mg PO DAILY 10/05/20 hydroCHLOROthiazide [Hydrochlorothiazide*] 25 mg PO DAILY 10/05/20 Followup: Carlitos Hernandez MD [ASSOCIATE-ACTIVE - CAN ADMIT] - Unknown,U [Primary Care Provider] -
== END 2020-10-08 14:56 | disposition home or self-care (01) | DRG 393 ==
LOC: ER 11:37 → ERHOLD 15:21 → 2ND 18:04
PROVIDERS: ADMIT Internal Medicine; ATTEND Internal Medicine
PROC: 0DB68ZX Excision of Stomach, Via Natural or Artificial Opening Endoscopic, Diagnostic (ICD-10-PCS; 2020-10-06)
PROC: 30233N1 Transfusion of Nonautologous Red Blood Cells into Peripheral Vein, Percutaneous Approach (ICD-10-PCS; 2020-10-07)
PROC: 0DBP8ZX Excision of Rectum, Via Natural or Artificial Opening Endoscopic, Diagnostic (ICD-10-PCS; principal; 2020-10-07 14:00)
DX: K62.1 Rectal polyp (principal); K29.71 Gastritis, unspecified, with bleeding; K25.4 Chronic or unspecified gastric ulcer with hemorrhage; K57.31 Diverticulosis of large intestine without perforation or abscess with bleeding; Q27.30 Arteriovenous malformation, site unspecified; K64.4 Residual hemorrhoidal skin tags; K64.8 Other hemorrhoids; E03.9 Hypothyroidism, unspecified; F41.1 Generalized anxiety disorder; F32.9 Major depressive disorder, single episode, unspecified; D64.9 Anemia, unspecified; I10 Essential (primary) hypertension; Z88.5 Allergy status to narcotic agent; Z79.890 Hormone replacement therapy; Z79.01 Long term (current) use of anticoagulants; Z79.899 Other long term (current) drug therapy; Z86.718 Personal history of other venous thrombosis and embolism; Z90.710 Acquired absence of both cervix and uterus; Z20.822 Contact with and (suspected) exposure to COVID-19
CPT/HCPCS: 36415; 74018; 80048; 80076; 83690; 85025; 86850; 86900; 86901; 88305; 99285; C9113; J0171; J2354; J2704; J2765; J7040; J7050; J7120; J7799; P9016; U0003

== ENCOUNTER 2024-08-12 21:00 | Inpatient (IN) | payer OTHER ==
[2024-08-12 22:07] VITALS: BMI 32.4
[2024-08-12] MEDS ORDERED: VANCOMYCIN 1 GM in NA CHLORIDE 0.9% 250 ML IVPB SCH (23:00)
[2024-08-12] MEDS: VANCOMYCIN 1.75 GM in NA CHLORIDE 0.9% 500 ML IVPB ONE (23:00)
[2024-08-12 23:12] LABS: Absolute Eosinophils 0.1 K/uL (0-0.5); Absolute Lymphocytes (CBC) 0.7 K/uL (0.7-4.9); Absolute Monocytes 0.5 K/uL (0.1-1.3); Absolute Neutrophil 1.9 K/uL (1.8-8.0); Basophils % 1.1 % (0-1.3); Eosinophils % 1.6 % (0-4.4); Hematocrit 28.4 % (36.0-45.0); Hemoglobin 9.3 g/dL (12.0-15.0); Lymphocytes % 22.5 % (15.3-44.8); MCH 29.4 pg (27.0-35.0); MCHC 32.7 g/dL (32.0-36.0); MCV 89.9 fL (80-100); MPV 9.2 fL (7.6-11.3); Monocytes % 15.8 % (3.3-12.3); Nucleated Red Blood Cells % 0.4 % (0-0); Platelets 150 thou/uL (152-406); RBC Red Blood Cell Count 3.16 M/uL (3.86-4.86); Red Cell Distribution Width 16.9 % (12.1-15.2)
[2024-08-12] MEDS: NACHLORIDE 0.45% 1,000 ML IV SCH (23:21)
[2024-08-12] MEDS: VANCOMYCIN 1 GM/VIAL ONE (23:53)
[2024-08-12] MEDS: NA CHLORIDE 0.9% 0 ML ONE (23:54)
[2024-08-12] MEDS: NA CHLORIDE 0.9% 500 ML ONE (23:58)
[2024-08-13] MEDS ORDERED: DIPHENHYDRAMINE 25 MG TAB/CAP PO PRN (04:08)
[2024-08-13] MEDS ORDERED: LOPERAMIDE HCL 2 MG CAPSULE PO PRN (04:09)
[2024-08-13] MEDS ORDERED: ONDANSETRON 4 MG (ODT) TAB PO PRN (04:10)
[2024-08-13] MEDS ORDERED: POLYETHYL GLY 3350 17 GM/DOSE PO PRN (04:11)
[2024-08-13 07:23] LABS: Absolute Eosinophils 0.1 K/uL (0-0.5); Absolute Lymphocytes (CBC) 0.8 K/uL (0.7-4.9); Absolute Monocytes 0.4 K/uL (0.1-1.3); Absolute Neutrophil 1.3 K/uL (1.8-8.0); Basophils % 0.7 % (0-1.3); Eosinophils % 2.7 % (0-4.4); Hematocrit 32.3 % (36.0-45.0); Hemoglobin 10.3 g/dL (12.0-15.0); Lymphocytes % 31.5 % (15.3-44.8); MCH 28.7 pg (27.0-35.0); MCV 89.8 fL (80-100); MPV 7.7 fL (7.6-11.3); Monocytes % 15.7 % (3.3-12.3); Neutrophils % 49.4 % (41.7-73.7); Platelets 136 thou/uL (152-406); RBC Red Blood Cell Count 3.59 M/uL (3.86-4.86); Red Cell Distribution Width 16.7 % (12.1-15.2)
--- NOTE | 2024-08-13 07:41 | RAD REPORT ---
EXAMINATION: TWO VIEW CHEST XR CLINICAL INDICATION: admission TECHNIQUE: 2 views of the chest was performed. COMPARISON: 12/31/2019 FINDINGS: The lungs are well inflated and clear. The heart is upper limit of normal in size. No displaced fract ures evident. IMPRESSION: No acute or significant abnormalities.
[2024-08-13 08:03] LABS: Albumin 2.8 g/dL (3.4-5.0); Albumin/Globulin Ratio 0.7 (1.1-1.8); Bilirubin Direct 0.2 mg/dL (0-0.2); Bilirubin Indirect, Calculated 0.2 mg/dL (0.2-0.8); Bilirubin Total 0.4 mg/dL (0.2-1.0); Globulin 4.1 g/dL (2.3-3.5); Magnesium 1.9 mg/dL (1.6-2.4); Phosphorus 2.9 mg/dL (2.5-4.9); Protein, Total 6.9 g/dL (6.4-8.2); Thyroid Stimulating Hormone 2.25 uIU/mL (0.358-3.740)
[2024-08-13] MEDS: ENOXAPARIN 40 MG/0.4 ML SQ SCH (09:41)
[2024-08-13] MEDS: BUPROPION HCL XL 150 MG TAB PO SCH (09:41)
[2024-08-13] MEDS: DESVENLAFAXINE SUCCINATE 50 MG ER TAB PO SCH (09:42)
[2024-08-13] MEDS: Mupirocin NASAL 2 APPL/1 GM TUBE NAS SCH (09:42)
[2024-08-13] MEDS: FERROUS SULFATE 325 MG TAB PO SCH (09:42)
--- NOTE | 2024-08-13 10:16 | RAD REPORT ---
EXAMINATION: ONE VIEW CHEST XR CLINICAL INDICATION: PICC Placement TECHNIQUE: Frontal chest projection is submitted. Examination is limited by patient positioning and t echnique. COMPARISON: 08/13/2024 FINDINGS: Left-sided PICC line is tip in the SVC. Lungs are grossly clear. The heart is moderately enlarged in size.
[2024-08-13] MEDS: ACETAMINOPHEN 325 MG TABLET PO PRN (12:59)
--- NOTE | 2024-08-13 15:26 | P.PN ---
Subjective Date of Service: 08/13/24 Chief Complaint: LEG PAIN, SWELLING. Subjective: Improving SHE HAS IMPROVED SOME. LEG PAIN AND SEVERE VARICOSITY. Review of Systems 10-point ROS is otherwise unremarkable Physical Examination - Vital Signs Temperature: 97.5 F Blood Pressure: 149/82 Pulse: 75 Respirations: 18 Pulse Ox (%): 96 - Physical Exam General: Oriented x3, Moderate distress HEENT: Atraumatic, PERRLA, EOMI Neck: Supple, JVD not distended Respiratory: Clear to auscultation bilaterally, Normal air movement Cardiovascular: Regular rate/rhythm, Normal S1 S2, Edema Gastrointestinal: Normal bowel sounds, No tenderness Musculoskeletal: No tenderness Integumentary: No rashes Neurological: Normal speech, Normal tone, Normal affect Lymphatics: No axilla or inguinal lymphadenopathy - Studies Laboratory Data (last 24 hrs) 08/13/24 08/13/24 08/13/24 05:54 05:54 05:00 WBC 2.50 L Hgb 10.3 L D Hct 32.3 L Plt Count 136 L APTT Sodium 140 Cancelled Potassium 4.0 Cancelled BUN 14 Cancelled Creatinine 1.22 H Cancelled Glucose 101 Cancelled Phosphorus 2.9 Magnesium 1.9 Cancelled Total Bilirubin 0.4 AST 36 ALT 21 Alkaline Phosphatase 207 H 08/12/24 08/12/24 08/12/24 Unknown 23:23 22:52 WBC 3.20 L Hgb 9.3 L Hct 28.4 L Plt Count 150 L APTT 32.6 Sodium Potassium BUN Creatinine Glucose Phosphorus Magnesium Cancelled Total Bilirubin AST ALT Alkaline Phosphatase Medications List Reviewed: Yes Assessment And Plan - Current Problems (Diagnosis) (1) Cellulitis of leg, left Current Visit: Yes Status: Acute Plan: FAILED KEFLEX AND BACTRIM SHE WILL NEED IV VANCOMYCIN. WE WILL CONTINUE THIS FOR TWO WEEKS. DC PLAN IN AM. SHE SHOULD FOLLOW UP WITH DR. MAC TO HELP WITH SEVERE VARICOSITY IT IS WHAT IS TRIGGERING THIS INFECTION. (2) Varicose vein of leg Current Visit: Yes Status: Acute
[2024-08-13] MEDS: TRAMADOL HCL 50 MG TAB PO PRN (19:25)
[2024-08-13] MEDS: VANCOMYCIN 1.5 GM in NA CHLORIDE 0.9% 500 ML IVPB SCH (22:42)
[2024-08-14] MEDS ORDERED: VANCOMYCIN 1.75 GM in NA CHLORIDE 0.9% 500 ML IVPB SCH
[2024-08-14] MEDS: ALPRAZOLAM 0.25 MG TABLET PO PRN (00:45)
[2024-08-14] MEDS: LEVOTHYROXINE SOD 0.075 MG TAB PO SCH (05:32)
[2024-08-14 06:41] LABS: Anion Gap 8.1 mEq/L (5.0-15.0); Potassium 4.1 mEq/L (3.5-5.1)
--- NOTE | 2024-08-14 17:33 | P.PN ---
Subjective Date of Service: 08/14/24 Chief Complaint: LEG PAIN, SWELLING. Subjective: Improving SHE HAS IMPROVED SOME. LEG PAIN AND SEVERE VARICOSITY. SHE IS IMPROVING, REDNESS IS GONE NOW. Review of Systems 10-point ROS is otherwise unremarkable General: Weakness Physical Examination - Vital Signs Temperature: 98.2 F Blood Pressure: 141/73 Pulse: 88 Respirations: 16 Pulse Ox (%): 99 - Physical Exam General: Alert, In no apparent distress HEENT: Atraumatic, PERRLA, EOMI Neck: Supple, JVD not distended Respiratory: Clear to auscultation bilaterally, Normal air movement Cardiovascular: Regular rate/rhythm, Normal S1 S2 Gastrointestinal: Normal bowel sounds, No tenderness Musculoskeletal: No tenderness Integumentary: No rashes Neurological: Normal speech, Normal tone, Normal affect Lymphatics: No axilla or inguinal lymphadenopathy - Studies Laboratory Data (last 24 hrs) 08/14/24 05:50 Sodium 140 Potassium 4.1 BUN 12 Creatinine 0.99 Glucose 79 Medications List Reviewed: Yes Assessment And Plan - Current Problems (Diagnosis) (1) Cellulitis of leg, left Current Visit: Yes Status: Acute Plan: FAILED KEFLEX AND BACTRIM SHE WILL NEED IV VANCOMYCIN. WE WILL CONTINUE THIS FOR TWO WEEKS. DC PLAN IN AM. SHE SHOULD FOLLOW UP WITH DR. MAC TO HELP WITH SEVERE VARICOSITY IT IS WHAT IS TRIGGERING THIS INFECTION. WE ARE WAITING FOR APPROVAL FOR HOME ABX. (2) Varicose vein of leg Current Visit: Yes Status: Acute
[2024-08-15 06:01] LABS: Anion Gap 6.8 mEq/L (5.0-15.0); Potassium 3.8 mEq/L (3.5-5.1)
--- NOTE | 2024-08-15 19:04 | P.PN ---
Subjective Date of Service: 08/15/24 Chief Complaint: LEG PAIN, SWELLING. Subjective: Improving SHE HAS IMPROVED SOME. LEG PAIN AND SEVERE VARICOSITY. SHE IS IMPROVING, REDNESS IS GONE NOW. SHE IS A LOT BETTER. NO FEVER PAIN CONTINUES BUT BETTER. Review of Systems 10-point ROS is otherwise unremarkable Physical Examination - Vital Signs Temperature: 97.5 F Blood Pressure: 148/69 Pulse: 80 Respirations: 20 Pulse Ox (%): 99 - Studies Laboratory Data (last 24 hrs) 08/15/24 05:30 Sodium 140 Potassium 3.8 BUN 12 Creatinine 0.99 Glucose 121 H Microbiology Data (last 24 hrs): 08/12/24 22:44 Clean Catch Urine [place] Count - Final BETWEEN 10,000 & 100,000 CFU/ML 08/12/24 22:44 Clean Catch Urine - Final MIXED NAYE. Medications List Reviewed: Yes Assessment And Plan - Current Problems (Diagnosis) (1) Cellulitis of leg, left Current Visit: Yes Status: Acute Plan: FAILED KEFLEX AND BACTRIM SHE WILL NEED IV VANCOMYCIN. WE WILL CONTINUE THIS FOR TWO WEEKS. DC PLAN IN AM. SHE SHOULD FOLLOW UP WITH DR. MAC TO HELP WITH SEVERE VARICOSITY IT IS WHAT IS TRIGGERING THIS INFECTION. WE ARE WAITING FOR APPROVAL FOR HOME ABX. WAITING FOR INSURANCE APPROVAL SHE IS STABLE TO GO HOME. VARICOSE VEINS ARE MAKING HER PRONE FOR INFFECTIONS. INDURATION IS LESSER,THERE IS NO FLUCTUATION. (2) Varicose vein of leg Current Visit: Yes Status: Acute
--- NOTE | 2024-08-16 17:36 | P.DS ---
Admission Date: 08/13/24 Discharge Date: 08/16/24 Disposition: DC HOME/HOME HEALTH CARE Discharge Condition: FAIR Reason for Admission: LEG PAIN, SWELLING. - Problems (1) Cellulitis of leg, left Status: Acute (2) Varicose vein of leg Status: Acute Hospital Course: MICHAEL HAD SEVERE CELLULITIS L LEG THAT SEEMED MRSA IN CHARACTER, FAILED TO IMPROVE WITH ORAL KEFLEX AND BACRIM LATER. I GAVE HER IV VANCOMYCIN AND HAD90% RESOLUTION IN TWO DAYS. SHE WILL CONT ABX AT HOME FOR 10 DAYS. WE WILL FU IN 10 DAYS. Vital Signs/Physical Exam: Temp Pulse Resp BP Pulse Ox 97.7 F 83 20 166/80 H 96 08/16/24 12:00 08/16/24 12:00 08/16/24 12:00 08/16/24 12:00 08/16/24 12:00 Laboratory Data at Discharge: WBC 2.50 thou/uL (4.3-10.9) L 08/13/24 05:54 Hgb 10.3 g/dL (12.0-15.0) L D 08/13/24 05:54 Hct 32.3 % (36.0-45.0) L 08/13/24 05:54 Plt Count 136 thou/uL (152-406) L 08/13/24 05:54 APTT 32.6 SECONDS (24.3-36.9) 08/12/24 23:23 Sodium 140 mEq/L (136-145) 08/15/24 05:30 Potassium 3.8 mEq/L (3.5-5.1) 08/15/24 05:30 BUN 12 mg/dL (7-18) 08/15/24 05:30 Creatinine 0.99 mg/dL (0.55-1.02) 08/15/24 05:30 Glucose 121 mg/dL (74-106) H 08/15/24 05:30 Phosphorus 2.9 mg/dL (2.5-4.9) 08/13/24 05:54 Magnesium 1.9 mg/dL (1.6-2.4) 08/13/24 05:54 Total Bilirubin 0.4 mg/dL (0.2-1.0) 08/13/24 05:54 AST 36 U/L (15-37) 08/13/24 05:54 ALT 21 U/L (13-56) 08/13/24 05:54 Alkaline Phosphatase 207 U/L (45-117) H 08/13/24 05:54 Home Medications: ALPRAZolam [Xanax*] 1 tab PO Q6H PRN 10/05/20 Desvenlafaxine Succinate [Desvenlafaxine Succinate ER] 100 mg PO DAILY 10/05/20 Ferrous Sulfate [Ferrous Sulfate*] 1 tab PO DAILY 10/05/20 buPROPion HCL [Bupropion Xl] 300 mg PO DAILY 10/05/20 Levothyroxine [Synthroid*] 75 mcg PO [id number] 08/12/24 Followup: Jayro Vale MD [Primary Care Provider] -
[2024-08-17 15:13] VITALS: BP 166/80; TEMP 97.7
[2024-08-17 15:42] VITALS: O2SAT 99
== END 2024-08-16 15:50 | disposition home health service (06) | DRG 300 ==
LOC: 4TH 21:00 → OBSVTOIN 08-13 18:43
PROVIDERS: ADMIT Internal Medicine; ATTEND Internal Medicine
PROC: 02HV33Z Insertion of Infusion Device into Superior Vena Cava, Percutaneous Approach (ICD-10-PCS; principal; 2024-08-13)
DX: I83.12 Varicose veins of left lower extremity with inflammation (principal); L03.116 Cellulitis of left lower limb; E03.9 Hypothyroidism, unspecified; I12.9 Hypertensive chronic kidney disease with stage 1 through stage 4 chronic kidney disease, or unspecified chronic kidney disease; N18.32 Chronic kidney disease, stage 3b; M19.90 Unspecified osteoarthritis, unspecified site; Z88.5 Allergy status to narcotic agent; Z79.890 Hormone replacement therapy; Z79.899 Other long term (current) drug therapy
CPT/HCPCS: 36415; 71045; 71046; 80048; 80076; 80202; 82306; 82607; 82652; 82947; 83036; 83735; 84100; 84443; 85025; 85730; 87086; 87088; G0378; G0379; J1650; J7040; J7050

== ENCOUNTER 2024-12-05 21:49 | Emergency (ER) | payer OTHER ==
[2024-12-05] MEDS ORDERED: FENTANYL CITR 100 MCG/2 ML ONE (22:22)
--- NOTE | 2024-12-05 22:36 | RAD REPORT ---
EXAM: CT brain without contrast HISTORY: TRAUMA COMPARISON: None TECHNIQUE: Multiple contiguous axial images were obtained and a CT of the brain without contrast. Sag ittal and coronal reformats were performed. One or more of the following dose reduction techniques were used: Automated exposure control, adjust ment of the mA and/or kV according to patient size, and/or iterative reconstruction. FINDINGS: No evidence of hydrocephalus, intracranial hemorrhage, or extra-axial fluid collection. The brain is normal in morphology. No evidence of midline shift or areas of brain edema. The calvarium is intact. Hemorrhagic material seen in both maxillary antra. Facial bone fractures are present, separately reported. EXAM: CT of the cervical spine without contrast HISTORY: Neck pain, injury TRAUMA TECHNIQUE: Multiple contiguous axial images were obtained in a CT of the cervical spine without contr ast. Sagittal and coronal reformats were performed. FINDINGS: The vertebral bodies demonstrate normal height and alignment. No evidence of acute fracture or subluxation.. No degenerative changes are present. No prevertebral soft tissue swelling is seen. The posterior facets are well aligned. Normal alignment of the skull base with the cervical spine is seen. Mandibular fractures are present bilaterally, separately reported. The lung apices are unremarkable. COMBINED IMPRESSION: No evidence of acute intracranial abnormality. No evidence of acute osseous abnormality of the cervical spine. Facial bone fractures separately reported.
--- NOTE | 2024-12-05 22:46 | RAD REPORT ---
EXAMINATION: CT MAXILLOFACIAL WITHOUT CONTRAST CLINICAL INDICATION: TRAUMA TECHNIQUE: Axial images were obtained through the facial bones and orbits without intravenous contras t. Sagittal and coronal reconstructions were created from the data. One or more of the following dose reduction techniques were used: Automated exposure control, adjustment of the mA and/or kV accor ding to patient size, and/or iterative reconstruction. Unless otherwise specified, incidental findings do not require dedicated imaging follow-up. COMPARISON: No prior exam. FINDINGS: Fractures involve both mandibular condyles, with significant angulation seen on the left resulting in this location of the left TMJ. Bilateral maxillary sinus fractures are present. On the left involving the anterior wall, medial wall and left alveolar ridge. On the right, the fracture involves the anterior wall, base of the right nasal bone, medial wall and inferior aspect of the right posterior lateral wall. Fractures of both na stephen bones are seen at the base. The zygomatic arches appear intact. Pterygoid processes appear intact. Minimal fracture of the anteri or nasal spine suspected. Moderate hemorrhagic material is present within both maxillary antra. Both globes appear intact without vitreous abnormality. IMPRESSION: Extensive facial bone fractures as detailed. Fractures of both mandibular condyles also present with left-sided TMJ dislocation.
--- NOTE | 2024-12-05 23:02 | EDPHYS ---
Physician Documentation [facility] Name: Chanel Koenig Age: 69 yrs Sex: Female : 1955 Arrival Date: 12/05/2024 Time: 21:49 Bed 4 Private MD: ED Physician Rojas Landon HPI: 12/05 23:14 This 69 yrs old Female presents to ER via EMS with complaints of Fall Injury. rt 23:14 Patient presents to the ED with a trip and fall. Patient landed on her chin causing her rt bottom gum to be forced into the roof of the mouth. Patient had bleeding from the mouth as well as the nose. Reports pain generally to her face. Denies loss of consciousness. Denies other acute complaints at this time, symptoms are moderate in severity, no other aggravating or alleviating factors.. Historical: - Allergies: 22:11 Codeine; lg3 - PMHx: 22:11 Depression; Hypertension; Hypothyroidism; lg3 - PSHx: 22:11 Total abdominal hysterectomy; lg3 - Immunization history:: Adult Immunizations up to date. - Infectious Disease History:: Denies. - Social history:: Smoking status: Patient denies any tobacco usage or history of. - Family history:: not pertinent. ROS: 23:14 Constitutional: Negative for fever, chills, and weight loss, Neck: Negative for injury, rt pain, and swelling, Cardiovascular: Negative for chest pain, palpitations, and edema, Respiratory: Negative for shortness of breath, cough, wheezing, and pleuritic chest pain, Abdomen/GI: Negative for abdominal pain, nausea, vomiting, diarrhea, and constipation, Skin: Negative for injury, rash, and discoloration, Neuro: Negative for headache, weakness, numbness, tingling, and seizure, 23:14 ENT: Positive for Facial, jaw pain, Exam: 23:14 Constitutional: This is a well developed, well nourished patient who is awake, alert, rt and in no acute distress. Neck: Trachea midline, no thyromegaly or masses palpated, and no cervical lymphadenopathy. Supple, full range of motion without nuchal rigidity, or vertebral point tenderness. No Meningismus. Chest/axilla: Normal chest wall appearance and motion. Nontender with no deformity. No lesions are appreciated. Cardiovascular: Regular rate and rhythm with a normal S1 and S2. No gallops, murmurs, or rubs. Normal PMI, no JVD. No pulse deficits. Respiratory: Lungs have equal breath sounds bilaterally, clear to auscultation and percussion. No rales, rhonchi or wheezes noted. No increased work of breathing, no retractions or nasal flaring. Abdomen/GI: Soft, non-tender, with normal bowel sounds. No distension or tympany. No guarding or rebound. No evidence of tenderness throughout. Skin: Warm, dry with normal turgor. Normal color with no rashes, no lesions, and no evidence of cellulitis. MS/ Extremity: Pulses equal, no cyanosis. Neurovascular intact. Full, normal range of motion. 23:14 ENT: Tenderness throughout mandible, maxilla, dried blood noted in the mouth,. Abrasion/laceration to the upper gum, no active bleeding, dried blood in nares. Vital Signs: 22:06 BP 156 / 92; Pulse 82; Resp 17 S; Temp 98.1(A); Pulse Ox 98% on R/A; Weight 97.52 kg lg3 (R); Height 5 ft. 7 in. (R); Pain 10/10; 23:03 BP 164 / 85; Pulse 81; Resp 17; Pulse Ox 99% ; vc1 05 00:03 BP 162 / 93; Pulse 88; Resp 16 S; Pulse Ox 99% on R/A; lg3 04 22:06 Body Mass Index 33.67 (97.52 kg, 170.18 cm) lg3 12/05 22:06 Pain Scale: Adult lg3 MDM: 12/05 22:00 Medical Screening Exam initiated rt 23:22 Differential diagnosis: Facial fracture, contusion, epistaxis. Data reviewed: vital rt signs, nurses notes, radiologic studies. Consideration of Admission/Observation Patient requires transfer for OMFS. I considered the following discharge prescriptions or medication management in the emergency department Medications were administered in the Emergency Department. See MAR. Independent interpretation of the following test(s) in the Emergency Department CT Scan: My interpretation is Mandibular fracture seen on interpretation of CT scan images. Test considered but Not performed: Other Details Patient reports mechanical fall, EKG not indicated. Care significantly affected by the following chronic conditions: Hypertension. Counseling: I had a detailed discussion with the patient and/or guardian regarding the historical points, exam findings, and any diagnostic results supporting the discharge/admit diagnosis, radiology results, the need to transfer to another facility. Response to treatment: the patient's symptoms have mildly improved after treatment. 12/05 22:02 Order name: CT Facial Bones W/O Con; Complete Time: 22:48 rt 12/05 22:02 Order name: CT Head C Spine; Complete Time: 22:48 rt Administered Medications: 22:49 Drug: fentaNYL (PF) IVP 75 mcg IVP once Route: IVP; Site: left antecubital; lg3 23:04 Follow up: Response: No adverse reaction vc1 12/06 00:02 Drug: Ampicillin-Sulbactam Sodium IVPB 3 grams IVPB once over 30 mins; (mix in 100 mL lg3 NS) Route: IVPB; Infused Over: 30 mins; Site: left antecubital; 00:32 Follow up: IV Status: Completed infusion; IV Intake: 100ml vc1 00:19 Not Given (Duplicate Order): fentanyl (pf)75 mcg IVP once br2 00:19 Drug: fentaNYL (PF) IVP 75 mcg IVP once Route: IVP; Site: left antecubital; br2 00:30 Follow up: Response: No adverse reaction; Pain is unchanged, physician notified vc1 Disposition Summary: 12/05/24 23:02 Transfer Ordered Notes: Transfer Location: [facility] rt Reason: Higher level of care rt Condition: Stable rt Problem: new rt Symptoms: are unchanged rt Accepting Physician: (12/06/24 00:35) vc1 Diagnosis - Mechanical fall rt - Fracture dislocation of left mandibular condyle rt - Fracture of right mandibular condyle rt - Bilateral maxillary sinus fracture rt - Nasal bone fracture rt Forms: - Medication Reconciliation Form rt - SBAR form rt Signatures: Dispatcher [employer] EDAlcira Vanessa RN RN lg3 Jaky Marie RN RN vc1 Rojsa Landon MD MD rt Iqra Flores RN RN br2 Corrections: (The following items were deleted from the chart) 12/05 22:02 22:02 Facial Bones W/ MPR+CT.RAD.BRZ ordered. EDMS EDMS 22:02 22:02 Head C Spine MPR Wo Con+CT.RAD.BRZ ordered. EDMS EDMS 05/05 00:35 05/04 23:02 Dr. rt vc1
--- NOTE | 2024-12-05 23:02 | ER ---
Nurse's Notes [facility] Name: Chanel Koenig Age: 69 yrs Sex: Female : 1955 Arrival Date: 12/05/2024 Time: 21:49 Bed 4 Private MD: Diagnosis: Mechanical fall;Fracture dislocation of left mandibular condyle;Fracture of right mandibular condyle;Bilateral maxillary sinus fracture;Nasal bone fracture Presentation: 12/05 22:06 Chief complaint: EMS states: fall from standing position onto chin/lower jaw. denies lg3 LOC. bleeding from mouth noted. 1000 mg IV Tylenol and 2 GM TXA administered [employer]. Coronavirus screen: Client denies travel out of the [place] in the last 14 days. At this time, the client does not indicate any symptoms associated with coronavirus-19. Ebola Screen: Patient negative for fever greater than or equal to 101.5 degrees Fahrenheit, and additional compatible Ebola Virus Disease symptoms. Initial Sepsis Screen: Does the patient meet any 2 criteria? No. Patient's initial sepsis screen is negative. Does the patient have a suspected source of infection? No. Patient's initial sepsis screen is negative. Risk Assessment: Do you want to hurt yourself or someone else? Patient reports no desire to harm self or others. Onset of symptoms was December 05, 2024. 22:06 Method Of Arrival: EMS: [facility] lg3 22:06 Acuity: DIEGO 3 lg3 Triage Assessment: 22:11 General: Appears in no apparent distress. uncomfortable, Behavior is cooperative, lg3 anxious. Pain: Complains of pain in chin, right jaw, left jaw and mouth. EENT: no teeth present. dentures not in place at this time. bleeding noted. Neuro: Singh Agitation-Sedation Scale (RASS): +1 Restless Level of Consciousness is awake, alert, obeys commands, Oriented to person, place, time, situation. Cardiovascular: No deficits noted. Denies chest pain, shortness of breath, Capillary refill < 3 seconds Clubbing of nail beds is absent JVD is absent Patient's skin is warm and dry. Respiratory: No deficits noted. Airway is patent Respiratory effort is even, unlabored, Respiratory pattern is regular, symmetrical. GI: No deficits noted. No signs and/or symptoms were reported involving the gastrointestinal system. : No signs and/or symptoms were reported regarding the genitourinary system. Derm: Skin is intact, is healthy with good turgor, Skin is dry, Skin is normal, Skin temperature is warm. Derm: Wound noted mouth. Musculoskeletal: Circulation, motion, and sensation intact. Range of motion: intact in all extremities. Historical: - Allergies: 22:11 Codeine; lg3 - PMHx: 22:11 Depression; Hypertension; Hypothyroidism; lg3 - PSHx: 22:11 Total abdominal hysterectomy; lg3 - Immunization history:: Adult Immunizations up to date. - Infectious Disease History:: Denies. - Social history:: Smoking status: Patient denies any tobacco usage or history of. - Family history:: not pertinent. Screenin:15 [facility] ED Fall Risk Assessment (Adult) History of falling in the last 3 months, lg3 including since admission Yes- single mechanical fall (1 pt) Confusion or Disorientation No (0 pts) Intoxicated or Sedated No (0 pts) Impaired Gait No (0 pts) Mobility Assist Device Used No (0 pt) Altered Elimination No (0 pt) Score/Fall Risk Level 0 - 2 = Low Risk Oriented to surroundings, Maintained a safe environment, Educated pt \T\ family on fall prevention, incl call for assistance when getting out of bed, Assessed \T\ reinforced patient's understanding of fall precautions. Abuse screen: Denies threats or abuse. Denies injuries from another. Nutritional screening: No deficits noted. Tuberculosis screening: No symptoms or risk factors identified. Assessment: 22:15 General: see triage assessment. lg3 23:04 Reassessment: Patient appears in no apparent distress at this time. No changes from vc1 previously documented assessment. Patient and/or family updated on plan of care and expected duration. Pain level reassessed. 12/06 00:03 Reassessment: Patient appears in no apparent distress at this time. No changes from lg3 previously documented assessment. Patient and/or family updated on plan of care and expected duration. Pain level reassessed. Patient is alert, oriented x 3, equal unlabored respirations, skin warm/dry/pink. Vital Signs: 12/05 22:06 BP 156 / 92; Pulse 82; Resp 17 S; Temp 98.1(A); Pulse Ox 98% on R/A; Weight 97.52 kg lg3 (R); Height 5 ft. 7 in. (R); Pain 10/10; 23:03 BP 164 / 85; Pulse 81; Resp 17; Pulse Ox 99% ; vc1 12/06 00:03 BP 162 / 93; Pulse 88; Resp 16 S; Pulse Ox 99% on R/A; lg3 12/05 22:06 Body Mass Index 33.67 (97.52 kg, 170.18 cm) lg3 12/05 22:06 Pain Scale: Adult lg3 ED Course: 12/05 21:55 Patient arrived in ED. [email or web address] 22:00 Rojas Landon MD is Attending Physician. rt 22:06 Alcira Reyes RN is Primary Nurse. lg3 22:11 Triage completed. lg3 22:11 Arm band placed on right wrist. lg3 22:15 Patient has correct armband on for positive identification. Bed in low position. Call 3 light in reach. Side rails up X 1. Client placed on continuous cardiac and pulse oximetry monitoring. NIBP monitoring applied. Door closed. Noise minimized. Warm blanket given. Pillow given. 22:15 Maintain EMS IV. Dressing intact. Good blood return noted. Site clean \T\ dry. Gauge \T\ lg 3 site: 20 LAC. 22:26 CT Facial Bones W/O Con In Process Unspecified. EDMS 22:27 CT Head C Spine In Process Unspecified. EDMS 23:09 [id number] called [facility] for transfer talked to Amber. gucci 23:21 [id number] auto accepted due to Trauma Dr Peter Olea admin approval Amber Fernández to the ER sp report number [phone] fax number [phone]. 23:51 called [facility] for transfer to [place]. sp 12/06 00:34 Provided Education on: Plan of care. vc1 00:34 No provider procedures requiring assistance completed. Patient transferred, IV remains vc1 in place. Administered Medications: 12/05 22:49 Drug: fentaNYL (PF) IVP 75 mcg IVP once Route: IVP; Site: left antecubital; lg3 23:04 Follow up: Response: No adverse reaction vc1 12/06 00:02 Drug: Ampicillin-Sulbactam Sodium IVPB 3 grams IVPB once over 30 mins; (mix in 100 mL lg3 NS) Route: IVPB; Infused Over: 30 mins; Site: left antecubital; 00:32 Follow up: IV Status: Completed infusion; IV Intake: 100ml vc1 00:19 Not Given (Duplicate Order): fentanyl (pf)75 mcg IVP once br2 00:19 Drug: fentaNYL (PF) IVP 75 mcg IVP once Route: IVP; Site: left antecubital; br2 00:30 Follow up: Response: No adverse reaction; Pain is unchanged, physician notified vc1 Medication: 00:34 VIS not applicable for this client. vc1 Intake: 00:32 IV: 100ml; Total: 100ml. vc1 Outcome: 12/05 23:02 ER care complete, transfer ordered by MD. rt 05 00:34 Transferred by ground EMS to [facility], Transfer form completed. X-rays sent vc1 w/ patient. Condition: stable Instructed on the need for transfer, 00:35 Patient left the ED. vc1 Signatures: Dispatcher [employer] EDMS Nohemi Michelle Lacie, RN RN lg3 Denise Titus [email or web address] Jaky Marie RN RN vc1 Rojas Landon MD MD rt Iqra Flores RN RN br2
[2024-12-05] MEDS ORDERED: AMPICILLIN/SULBACTAM 3GM/VIAL ONE (23:23)
[2024-12-05] MEDS ORDERED: NA CHLORIDE 0.9% 0 ML ONE (23:24)
[2024-12-05] MEDS ORDERED: NA CHLORIDE 0.9% 100 ML ONE (23:40)
[2024-12-06] MEDS ORDERED: FENTANYL CITR 100 MCG/2 ML ONE (00:15)
[2024-12-06 01:50] VITALS: TEMP 98.1
[2024-12-06 01:52] VITALS: O2SAT 99
[2024-12-06 01:53] VITALS: BP 162/93
== END 2024-12-06 00:35 | disposition short-term general hospital (02) ==
LOC: ER 21:49
DX: S02.612A Fracture of condylar process of left mandible, initial encounter for closed fracture (principal); S02.611A Fracture of condylar process of right mandible, initial encounter for closed fracture; S02.40DA Maxillary fracture, left side, initial encounter for closed fracture; S02.40CA Maxillary fracture, right side, initial encounter for closed fracture; S02.2XXA Fracture of nasal bones, initial encounter for closed fracture; W01.0XXA Fall on same level from slipping, tripping and stumbling without subsequent striking against object, initial encounter
CPT/HCPCS: 96365; 70450; 72125; 70486; 76377; 96375; 99285; J3010 ×2; J0295